=== PATIENT | female | born 1975 ===

== ENCOUNTER 2016-10-31 12:08 | Inpatient (IN) ==
--- NOTE | 2016-10-31 13:02 | Emergency Department Note ---
Raymundo Murphy Meredith, am scribing for, and in the presence of, Abdulaziz Melendez MD 12:51. Al Murphy Phillip K, MD, personally performed the services described in this documentation, ascribed by Carmela Fonseca in my presence, and it is both accurate and complete . Arrival - Arrival Chief Complaint: Extremity Problem Stated Complaint: infection in foot ED Nursing Triage Note: PT TRANSFERRED FROM [facility] FOR FURTHER EVALUATION OF INFECTION/CELLULITIS TO RIGHT FOOT. PT HAD PIECE OF GLASS REMOVED ON FRIDAY. PT GOT ROCEPHIN ON FRIDAY AND HAS BEEN TAKING PO AMOXIL. Mode of Arrival: Wheelchair Limitations: No Limitations Source: Patient, Old Records Reviewed, RN Notes Reviewed Time Seen by Provider: 10/31/16 12:55 - History of Present Illness HPI Narrative: Pt is a 41 y/o [place] female transferred to the ED from [facility] for further evaluation of infection/cellulitis to the right foot. She had a piece of glass removed 3 days ago. Pt got a Rocephin at that time and had been taking Amoxil. She denies any fever. She has a history of IDDM. Pt is a current everyday smoker. Onset (ago): day(s) Date of Last Menstrual Period: 10/19 Allergies/Adverse Reactions: Allergies Allergy/AdvReac Type Severity Reaction Status Date / Time sulfamethoxazole Allergy Unknown/Unable Verified 10/31/16 12:17 [From Bactrim] to obtain trimethoprim [From Bactrim] Allergy Unknown/Unable Verified 10/31/16 12:17 to obtain Home Medications: Home Medications Medication Instructions Recorded Confirmed Type Gabapentin Cap/Tab [Neurontin 300 mg PO BEDTIME 06/26/15 10/31/16 History Cap/Tab] Acetaminophen Tab [Tylenol Tab] 650 mg PO Q6H PRN #0 tablet 07/07/15 10/31/16 Rx Aspirin EC Tab 81 mg PO DAILY tablet 07/07/15 10/31/16 Rx Insulin Detemir [Levemir] 40 unit SUBCUT BEDTIME injection 07/07/15 10/31/16 Rx Acetamin/Codeine 300-30 Tab 1 tablet PO Q4H 10/31/16 10/31/16 History [Tylenol/Codeine #3] Gemfibrozil 600 mg PO QPM 10/31/16 10/31/16 History Mupirocin 2% Oint [Bactroban 2% 1 applic TOP TID 10/31/16 10/31/16 History Oint] Saxagliptin HCl [Onglyza] 2.5 mg PO QPM 10/31/16 10/31/16 History metFORMIN [Glucophage] 850 mg PO BID W/MEALS 10/31/16 10/31/16 History Review of System - Review of System 12 point system: reviewed and no additional remarkable complaints except as stated - Review of System Skin: Present: as per HPI, other (cellulitis/infection to the right foot) Medical,Surgical,& Family Hx - Medical History Endocrine: History of: Diabetes Mellitus (IDDM) - Surgical History Cardiac Surgeries: Patient Denies: Femoral-Popliteal Bypass Graft, Cardiac Catheterization, Cardiac Surgery, Carotid Endarterectomy, Internal Defibrillator, Vascular Access Devices Thoracic Surgeries: Patient denies;: Organ Transplant, Lobectomy Neurologic Surgeries: Patient denies: Neurologic Surgery HEENT Surgeries: Patient denies: Carotid Endarterectomy Abdominal Surgeries: Patient denies: Abdominal Surgery, Appendectomy, Cholecystectomy, Colonoscopy , Gastric Bypass Surgery, EGD, Hernia Repair, Splenectomy - Family History Family History: Reports;: Family Cancer (father's side), Family Diabetes Denies;: Family Heart Disease, Family Hypertension, Family Psychiatric Problems, Family Stroke - Social History Smoking Status: Current every day smoker Frequency of Alcohol Use: Occasionally Type of Drug Use: None Exam Vital Signs: Vital Signs Temperature 97.8 F 10/31/16 12:54 Pulse Rate 95 H 10/31/16 12:54 Respiratory Rate 16 10/31/16 12:54 Blood Pressure 104/66 10/31/16 12:54 O2 Sat by Pulse Oximetry 97 10/31/16 12:10 - General General appearance: alert, in no apparent distress - Head Head exam: Present: atraumatic, normocephalic - Eye Eye exam: Present: normal appearance, PERRL, EOMI - ENT ENT exam: Present: mucous membranes moist, normal external ear exam - Neck Neck exam: Present: full ROM, trachea midline. Absent: tenderness, meningismus , lymphadenopathy, thyromegaly - Chest Chest inspection: Present: symmetric chest wall rise. Absent: tenderness, rash - Respiratory Respiratory exam: Present: normal lung sounds bilaterally. Absent: respiratory distress - Cardiovascular Cardiovascular exam: Present: normal rhythm, tachycardia. Absent: murmur, rubs , gallop - Abdominal Exam Abdominal exam: Present: soft, normal bowel sounds. Absent: distention, tenderness - Extremities Exam Extremities exam: Present: full ROM, tenderness (at the site of puncture wound in the right foot), normal capillary refill. Absent: pedal edema, calf tenderness - Back Exam Back exam: Present: full ROM. Absent: tenderness - Neurological Exam Neurological exam: Present: alert, oriented X3, CN II-XII intact. Absent: motor sensory deficit - Psychiatric Psychiatric exam: Present: normal affect, normal mood - Skin Skin exam: Present: warm, dry, erythema (to the plantar aspect of of the right foot), other (swelling to the dorsum of the right foot) Results - Labs CBC & BMP: 10/31/16 13:40 Lab Results: I have reviewed the patients labs Labs: Laboratory Tests 10/31/16 13:40 WBC 7.7 RBC 3.91 Hgb 8.5 L Hct 28.7 L MCV 73.4 L MCH 22 L MCHC 29.6 L Plt Count 123 L Neut % (Auto) 78.6 H Lymph % (Auto) 13.4 L Lymph # (Auto) 1.0 L - Diagnostic Findings Procedure: X-ray: report reviewed by me (Foot: No acute fracture or dislocation demonstrated. No radiopaque foreign body visualized. There is soft tissue swelling about the foot at the MCP level. ) Disposition Clinical Impression: cellulitis right foot, Diabetes mellitus Case discussed with: patient Disposition: Still a Patient Condition: Guarded Additional Instructions: Admit to the hospitalist for IV antibiotics.
[2016-10-31] MEDS ORDERED: CLINDAMYCIN INJ 600 MG in PREMIX 1 EACH IV STA (13:32)
[2016-10-31 13:55] LABS: Basophils % 0.1 % (0.0-0.8); Eosinophils # 0.1 10*3/uL (0.0-0.87); Eosinophils % 0.8 % (0.00-10.9); Hematocrit 28.7 VOL% (35.7-47.0); Hemoglobin 8.5 GM/DL (12.0-16.0); Immature Granulocytes % 0.4 %; Immature Granulocytes Absolute 0.03 #; Lymphocytes % 13.4 % (21.3-54.2); Mean Corpuscular HGB Conc 29.6 GM/DL (32-36); Mean Corpuscular Hemoglobin 22 PG (27-34); Mean Corpuscular Volume 73.4 FL (87-102); Mean Platelet Volume 10.8 FL (9.6-12.0); Monocytes # 0.5 10*3/uL (0.11-0.8); Monocytes % 6.7 % (1.7-12.7); Neutrophils # 6.1 10*3/uL (1.4-7.4); Neutrophils % 78.6 % (38.7-73.9); Platelet Count 123 T/CUMM (130-400); Red Blood Count 3.91 MC/CUMM (3.8-5.5); Red Cell Distribution Width 16.3 % (9.3-17.3); White Blood Count 7.7 T/CUMM (4-12)
[2016-10-31] MEDS ORDERED: CLINDAMYCIN INJ 50 ML IV ONE (13:56)
[2016-10-31] MEDS ORDERED: GLUCAGON 1 MG VIAL IM PRN (14:00)
[2016-10-31] MEDS ORDERED: DEXTROSE 50% 25 GM/50 ML VIAL IV PRN (14:00)
[2016-10-31] MEDS ORDERED: DOCUSATE SODIUM 100 MG CAPSULE PO PRN (14:00)
[2016-10-31] MEDS ORDERED: ONDANSETRON 4 MG/2 ML VIAL IV PRN (14:00)
--- NOTE | 2016-10-31 14:03 | XRay Report ---
XR foot 3V RT Indication: Foreign body right foot removed Friday Comparison: Right foot x-ray dated October 25, 2016 Technique: Frontal, lateral, and oblique views of the right foot. Findings: No acute fracture or dislocation demonstrated. No radiopaque foreign body visualized. There is soft tissue swelling about the foot at the MCP level. IMPRESSION: As above. PROCEDURE INTERPRETED AT [facility] DEPARTMENT OF RADIOLOGY Final Report Signed by: Dr Jose A Westfall
[2016-10-31 14:27] LABS: Calcium 8.3 MG/DL (8.5-10.1); Osmolality,Calculated 287.7 MOS/KG (273-304); Potassium 4.3 MMOL/L (3.5-5.1)
--- NOTE | 2016-10-31 14:46 | Hospitalist History & Physical ---
Assessment and Plan (1) Cellulitis Status: Acute Assessment and plan: We will start empirical antibiotics after blood cultures are obtained. We will consult wound care for evaluation of right foot wound. Current Visit: No (2) Diabetes mellitus Status: Acute Assessment and plan: We will start accuchecks with sliding scale coverage and obtain HGA1C in AM. Current Visit: Yes Qualifiers: Diabetes mellitus complication status: with unspecified complications History of Present Illness Chief complaint: Infected Right Foot History of present illness: This a pleasant 41 year-old female with past medical history of diabetes and hypertension that presented from the [facility] for the evaluation of her right foot. Apparently, approximately 2 weeks ago her children were playing with a basketball in the house. They threw the ball into the air and it made contact with a glass light fixture causing it to shatter. She states that she stepped on some glass while attempting to clean-up the glass. She attempted to remove the glass and thought that she did. Her foot became increasingly worse; prompting her to present to the [facility] on last week. During that visit, she reports that the physician removed a small piece of glass at that time. She returned home. Her foot became very painful and warm to touch. Today, she presented to the [facility] for evaluation of her foot. She was seen at there today; where her right foot was evaluated. She was advised to present to [facility] for further evaluation. She will be admitted to the hospitalist service for infected right foot; probable cellulitis. Home Medications Medication Instructions Recorded Confirmed Type Gabapentin Cap/Tab [Neurontin 300 mg PO BEDTIME 06/26/15 10/31/16 History Cap/Tab] Acetaminophen Tab [Tylenol Tab] 650 mg PO Q6H PRN #0 tablet 07/07/15 10/31/16 Rx Aspirin EC Tab 81 mg PO DAILY tablet 07/07/15 10/31/16 Rx Insulin Detemir [Levemir] 40 unit SUBCUT BEDTIME injection 07/07/15 10/31/16 Rx Acetamin/Codeine 300-30 Tab 1 tablet PO Q4H 10/31/16 10/31/16 History [Tylenol/Codeine #3] Gemfibrozil 600 mg PO QPM 10/31/16 10/31/16 History Mupirocin 2% Oint [Bactroban 2% 1 applic TOP TID 10/31/16 10/31/16 History Oint] Saxagliptin HCl [Onglyza] 2.5 mg PO QPM 10/31/16 10/31/16 History metFORMIN [Glucophage] 850 mg PO BID W/MEALS 10/31/16 10/31/16 History Allergies Allergy/AdvReac Type Severity Reaction Status Date / Time sulfamethoxazole Allergy Unknown/Unable Verified 10/31/16 12:17 [From Bactrim] to obtain trimethoprim [From Bactrim] Allergy Unknown/Unable Verified 10/31/16 12:17 to obtain Medical,Surgical,& Family Hx - Medical History Endocrine: History of: Diabetes Mellitus (IDDM) - Surgical History Cardiac Surgeries: Patient Denies: Femoral-Popliteal Bypass Graft, Cardiac Catheterization, Cardiac Surgery, Carotid Endarterectomy, Internal Defibrillator, Vascular Access Devices Thoracic Surgeries: Patient denies;: Organ Transplant, Lobectomy Neurologic Surgeries: Patient denies: Neurologic Surgery HEENT Surgeries: Patient denies: Carotid Endarterectomy Abdominal Surgeries: Patient denies: Abdominal Surgery, Appendectomy, Cholecystectomy, Colonoscopy , Gastric Bypass Surgery, EGD, Hernia Repair, Splenectomy - Family History Family History: Reports;: Family Cancer (father's side), Family Diabetes Denies;: Family Heart Disease, Family Hypertension, Family Psychiatric Problems, Family Stroke - Social History Smoking Status: Current every day smoker Frequency of Alcohol Use: Occasionally Type of Drug Use: None Exam - Constitutional Vitals: Period Temp Pulse Resp BP Sys/Muniz Pulse Ox Last 24 Hr 97.8 F-97.8 F 95-95 16-16 104-104/66-66 97 Results - Labs CBC & BMP: 10/31/16 13:40 10/31/16 13:40 Quality Measures - VTE Contraindication to Pharmacological VTE Prophylaxis: Clinical assessment deems Pt at low risk, no prophalaxis needed
[2016-10-31] MEDS: SODIUM CHLORIDE 0.9% 1,000 ML IV SCH (17:50)
[2016-10-31] MEDS: INSULIN REGULAR 100 UNIT/ML SUBCUT SCH ×2 (17:52→21:01)
[2016-11-01] MEDS: SODIUM CHLORIDE 0.9% 1,000 ML IV SCH ×3 (06:27→21:08)
[2016-11-01 06:55] LABS: Basophils % 0.3 % (0.0-0.8); Eosinophils # 0.1 10*3/uL (0.0-0.87); Eosinophils % 1.9 % (0.00-10.9); Hematocrit 25.7 VOL% (35.7-47.0); Hemoglobin 7.4 GM/DL (12.0-16.0); Immature Granulocytes % 0.2 %; Immature Granulocytes Absolute 0.01 #; Lymphocytes # 1.5 10*3/uL (1.4-4.0); Lymphocytes % 23.6 % (21.3-54.2); Mean Corpuscular HGB Conc 28.8 GM/DL (32-36); Mean Corpuscular Hemoglobin 21 PG (27-34); Mean Corpuscular Volume 74.3 FL (87-102); Monocytes # 0.5 10*3/uL (0.11-0.8); Monocytes % 7.9 % (1.7-12.7); Neutrophils # 4.3 10*3/uL (1.4-7.4); Neutrophils % 66.1 % (38.7-73.9); Platelet Count 106 T/CUMM (130-400); Red Blood Count 3.46 MC/CUMM (3.8-5.5); Red Cell Distribution Width 16.4 % (9.3-17.3); White Blood Count 6.4 T/CUMM (4-12)
[2016-11-01 07:23] LABS: Hypochromasia 1+
[2016-11-01 07:44] LABS: Albumin 2.3 G/DL (3.4-5.0); Bilirubin,Total 0.7 MG/DL (0.2-1.0); Calcium 7.3 MG/DL (8.5-10.1); Magnesium 1.6 MG/DL (1.8-2.4); Osmolality,Calculated 289.8 MOS/KG (273-304); Phosphorous 3.1 MG/DL (2.5-4.9); Potassium 4.1 MMOL/L (3.5-5.1); Risk Ratio 2.65; Thyroid Stimulating Hormone 1.26 uIU/ml (0.358-3.74); Total Protein 5.6 G/DL (6.4-8.3)
[2016-11-01] MEDS: PANTOPRAZOLE 40 MG TABLET PO SCH (08:01)
[2016-11-01] MEDS ORDERED: MAGNESIUM SULF RIDER 4 GM in PREMIX 1 EACH IV ONE (08:30)
[2016-11-01] MEDS: INSULIN REGULAR 100 UNIT/ML SUBCUT SCH ×4 (08:50→21:03)
[2016-11-01] MEDS ORDERED: SODIUM CHLORIDE 0.9% 250 ML IV PRN (09:12)
--- NOTE | 2016-11-01 13:36 | Magnetic Resonance Report ---
Referring Physician: Carol Quarles MD Exam: MR foot without contrast Date: November 01, 2016 Reason: Redness and swelling, stepped on glass one week ago, foreign body removed Friday Comparison: Right foot x-rays October 25, 2016 and October 31, 2016 Technique: MRI of the right forefoot was performed without the use of contrast. Obtained sequences include axial proton-density, axial proton density fat sat, sagittal T1, sagittal proton density fat sat, coronal T1, coronal proton density fat sat and coronal STIR sequences. A 1.2 Billie open magnet was used. Findings: There is soft tissue edema at the plantar aspect of the right forefoot, mainly underlying the first and second metatarsal heads. There is a history of recent foreign body removal in this region, and this could represent edema from trauma or cellulitis. No definite soft tissue foreign body is seen. Between the first and second metatarsal heads, there is a 0 0.7 x 0.7 x 0.4 cm well-circumscribed focus of T2 hyperintensity/T1 hypointensity. This has a cystic appearance and could represent a ganglion cyst. An abscess is thought less likely since it is located at the margin of the above-mentioned edema but cannot be excluded. No acute fracture or osseous destructive process is identified. The visualized tendons and ligaments appear intact. There is no evidence of sesamoiditis. Impression: 1. There is soft tissue edema at the plantar aspect of the right forefoot, mainly underlying the first and second metatarsal heads. There is a history of foreign body removal in this region, and this could represent edema from recent trauma or cellulitis. 2. Between the first and second metatarsal heads, there is a 0.7 x 0.7 x 0.4 cm cystic area. This could represent a ganglion cyst. An abscess is thought less likely since it is at the margin of the above-mentioned edema, but an abscess cannot be excluded. Follow-up imaging could be obtained. PROCEDURE INTERPRETED AT [facility] DEPARTMENT OF RADIOLOGY Final Report Signed by: Dr. Segundo Dennis
--- NOTE | 2016-11-01 14:42 | Hospitalist Progress Note ---
Assessment and Plan - Time spent with patient Time spent with patient: Greater than 30 minutes (1) Cellulitis Status: Acute Assessment and plan: MRI reveals no foreign objects and a likely cyst adjacent to the area of edema where the puncture wound is. Not likely to be an abscess.. Current Visit: No (2) Diabetes mellitus Status: Acute Assessment and plan: Continue current management. Will also add Levemir. Current Visit: Yes Qualifiers: Diabetes mellitus complication status: with unspecified complications (3) Hypertension Status: Acute Assessment and plan: Continue current management. Current Visit: No Qualifiers: Hypertension type: essential hypertension Qualified Code(s): I10 - Essential (primary) hypertension Hospitalist: Subjective Interval history: Patient reports feeling much better this morning. There is still tenderness at the area of the puncture wound. Exam - Constitutional Vitals: Period Temp Pulse Resp BP Sys/Muniz Pulse Ox Last 24 Hr 98 F-98.9 F 85-94 16-20 104-113/58-73 92-100 General appearance: no acute distress - Head Head exam: Present: normocephalic, atraumatic - Eye Eye exam: Present: EOMI Pupils: Present: ZAY - ENT ENT exam: Present: normal exam - Neck Neck exam: Present: normal inspection - Respiratory Respiratory exam: Present: clear to auscultation bilaterally. Absent: rhonchi, wheezes - Cardiovascular Cardiovascular exam: Present: regular rate and rhythm. Absent: gallop, rubs, systolic murmur - GI/Abdominal GI/Abdominal exam: Present: normal bowel sounds, soft. Absent: distended, firm , guarding, tenderness, rebound - Extremities Exam Extremities exam: Present: normal inspection, other (Erythema around the area the puncture wound has significantly reduced plantar right foot.). Absent: calf tenderness, edema Results - Labs CBC & BMP: 11/01/16 05:31 11/01/16 05:31 Lab Results: I have reviewed the past 24 hour labs Quality Measures - VTE Contraindication to Pharmacological VTE Prophylaxis: Clinical assessment deems Pt at low risk, no prophalaxis needed
[2016-11-01] MEDS: metFORMIN 850 MG TABLET PO SCH (17:01)
[2016-11-01] MEDS: sitaGLIPtin 100 MG TABLET PO SCH (19:39)
[2016-11-01] MEDS: GABAPENTIN 300 MG CAPSULE PO SCH (21:03)
[2016-11-01] MEDS: INSULIN GLARGINE 100 UNIT/ML SUBCUT SCH (21:04)
[2016-11-02 06:07] LABS: Basophils % 0.1 % (0.0-0.8); Eosinophils # 0.1 10*3/uL (0.0-0.87); Eosinophils % 1.1 % (0.00-10.9); Hemoglobin 8.8 GM/DL (12.0-16.0); Immature Granulocytes % 0.5 %; Immature Granulocytes Absolute 0.04 #; Lymphocytes # 1.2 10*3/uL (1.4-4.0); Lymphocytes % 14.7 % (21.3-54.2); Mean Corpuscular HGB Conc 30.3 GM/DL (32-36); Mean Corpuscular Hemoglobin 23 PG (27-34); Mean Corpuscular Volume 75.7 FL (87-102); Monocytes # 0.6 10*3/uL (0.11-0.8); Monocytes % 6.9 % (1.7-12.7); Neutrophils # 6.1 10*3/uL (1.4-7.4); Neutrophils % 76.7 % (38.7-73.9); Platelet Count 108 T/CUMM (130-400); Red Blood Count 3.83 MC/CUMM (3.8-5.5); Red Cell Distribution Width 16.7 % (9.3-17.3)
[2016-11-02 06:36] LABS: Calcium 7.3 MG/DL (8.5-10.1); Potassium 4.2 MMOL/L (3.5-5.1)
[2016-11-02] MEDS: INSULIN REGULAR 100 UNIT/ML SUBCUT SCH ×4 (07:39→20:33)
[2016-11-02] MEDS: SODIUM CHLORIDE 0.9% 1,000 ML IV SCH ×3 (07:50→18:55)
[2016-11-02] MEDS: PANTOPRAZOLE 40 MG TABLET PO SCH (09:33)
[2016-11-02] MEDS: ASPIRIN EC 81 MG TABLET PO SCH (09:33)
[2016-11-02] MEDS: metFORMIN 850 MG TABLET PO SCH ×2 (09:33→17:10)
--- NOTE | 2016-11-02 11:49 | Hospitalist Progress Note ---
Assessment and Plan - Time spent with patient Time spent with patient: Greater than 30 minutes (1) Cellulitis Status: Acute Assessment and plan: MRI reveals no foreign objects and a likely cyst adjacent to the area of edema where the puncture wound is. Not likely to be an abscess however will ask orthopedics to evaluate. Current Visit: No (2) Diabetes mellitus Status: Acute Assessment and plan: Continue current management. Current Visit: Yes Qualifiers: Diabetes mellitus complication status: with unspecified complications (3) Hypertension Status: Acute Assessment and plan: Continue current management. Current Visit: No Qualifiers: Hypertension type: essential hypertension Qualified Code(s): I10 - Essential (primary) hypertension Hospitalist: Subjective Interval history: No complaints no overnight events. Exam - Constitutional Vitals: Period Temp Pulse Resp BP Sys/Muniz Pulse Ox Last 24 Hr 97.9 F-99.6 F 80-100 16-20 100-133/58-82 92-99 General appearance: no acute distress - Head Head exam: Present: normocephalic, atraumatic - Eye Eye exam: Present: EOMI Pupils: Present: ZAY - ENT ENT exam: Present: normal exam - Neck Neck exam: Present: normal inspection - Respiratory Respiratory exam: Present: clear to auscultation bilaterally. Absent: rhonchi, wheezes - Cardiovascular Cardiovascular exam: Present: regular rate and rhythm. Absent: gallop, rubs, systolic murmur - GI/Abdominal GI/Abdominal exam: Present: normal bowel sounds, soft. Absent: distended, firm , guarding, tenderness, rebound - Extremities Exam Extremities exam: Present: normal inspection, other (Right foot reveals ecchymoses on the plantar surface.). Absent: calf tenderness, edema Results - Labs CBC & BMP: 11/02/16 05:39 11/02/16 05:39 Lab Results: I have reviewed the past 24 hour labs Quality Measures - VTE Contraindication to Pharmacological VTE Prophylaxis: Clinical assessment deems Pt at low risk, no prophalaxis needed
--- NOTE | 2016-11-02 16:57 | Orthopedic Consult Note ---
History of Present Illness Chief complaint: Right foot infection History of present illness: Ms. Calle is a 41 year old female who was admitted to the hospital with a right foot infection. Last week, she stepped on some glass at home. It was removed an outside facility. She developed increased redness and swelling in the foot and was transferred here for further care. She was then started on IV antibiotics. An MRI was obtained that showed questionable cyst versus abscess. I was consulted for evaluation. Patient states that the swelling has improved over the last day or 2 while on antibiotics. She has an insulin-dependent diabetic She denies any constitutional symptoms Home Medications Medication Instructions Recorded Confirmed Type Gabapentin Cap/Tab [Neurontin 300 mg PO BEDTIME 06/26/15 10/31/16 History Cap/Tab] Acetaminophen Tab [Tylenol Tab] 650 mg PO Q6H PRN #0 tablet 07/07/15 10/31/16 Rx Aspirin EC Tab 81 mg PO DAILY tablet 07/07/15 10/31/16 Rx Insulin Detemir [Levemir] 40 unit SUBCUT BEDTIME injection 07/07/15 10/31/16 Rx Acetamin/Codeine 300-30 Tab 1 tablet PO Q4H 10/31/16 10/31/16 History [Tylenol/Codeine #3] Mupirocin 2% Oint [Bactroban 2% 1 applic TOP TID 10/31/16 10/31/16 History Oint] Saxagliptin HCl [Onglyza] 2.5 mg PO QPM 10/31/16 10/31/16 History metFORMIN [Glucophage] 850 mg PO BID W/MEALS 10/31/16 10/31/16 History Allergies Allergy/AdvReac Type Severity Reaction Status Date / Time sulfamethoxazole Allergy Unknown/Unable Verified 10/31/16 12:17 [From Bactrim] to obtain trimethoprim [From Bactrim] Allergy Unknown/Unable Verified 10/31/16 12:17 to obtain 12 point system: reviewed and no additional remarkable complaints except as stated Medical,Surgical,& Family Hx - Medical History Endocrine: History of: Diabetes Mellitus (IDDM) Musculoskeletal: No history of: Amputation - Surgical History Cardiac Surgeries: Patient Denies: Femoral-Popliteal Bypass Graft, Cardiac Catheterization, Cardiac Surgery, Carotid Endarterectomy, Internal Defibrillator, Vascular Access Devices Thoracic Surgeries: Patient denies;: Organ Transplant, Lobectomy Neurologic Surgeries: Patient denies: Neurologic Surgery HEENT Surgeries: Patient denies: Carotid Endarterectomy Abdominal Surgeries: Patient denies: Abdominal Surgery, Appendectomy, Cholecystectomy, Colonoscopy , Gastric Bypass Surgery, EGD, Hernia Repair, Splenectomy Reproductive Surgeries: Surgical HX of;: Section, Gynecologic Surgery, Tubal Ligation - Family History Family History: Reports;: Family Cancer (father's side), Family Diabetes Denies;: Family Heart Disease, Family Hypertension, Family Psychiatric Problems, Family Stroke - Social History Smoking Status: Current every day smoker Frequency of Alcohol Use: Occasionally Type of Drug Use: None Exam - Constitutional Vitals: Period Temp Pulse Resp BP Sys/Muniz Pulse Ox Last 24 Hr 97.9 F-99.4 F 80-100 16-20 100-133/58-82 92-99 Exam: Right foot: She has some erythema and edema about the foot particular plantar also ecchymosis over the plantar aspect of the foot. She has got an area of the distal forefoot underneath the second metatarsal head with a glass was likely removed. She is nontender along the dorsal aspect of the foot. There is no streaking, no fluctuance noted. Results - Labs CBC & BMP: 11/02/16 05:39 11/02/16 05:39 - Diagnostic Findings Procedure: MRI: image reviewed by me, report reviewed by me (MRI of the right foot shows some swelling and edema consistent with cellulitis plantar aspect of the right foot. There is a fluid-filled lesion along the lateral aspect of the great toe MTP joint. This does not communicate with the plantar aspect of the foot. Likely represents a ganglion cyst. Unlikely to be an abscess.), X-ray: image reviewed by me (Radiographs show no fracture, soft tissue swelling is noted) Assessment and Plan (1) Cellulitis Status: Acute Assessment and plan: Right foot cellulitis status post foreign body removal Per the patient her symptoms appear to be improving. By exam and MRI feel that the lesion noted is more likely a ganglion cyst that communicates with the great toe MTP joint rather than an abscess, however the MRI was done without contrast. At this point, I do not think any surgical intervention is necessary. Recommend continue IV antibiotics. If her symptoms worsen, repeat imaging with contrast could be of benefit. Patient follow-up with the health center, and orthopedic follow-up as necessary. Current Visit: No Qualifiers: Site of cellulitis: extremity Site of cellulitis of extremity: lower extremity Laterality: right Qualified Code(s): L03.115 - Cellulitis of right lower limb
[2016-11-02] MEDS: sitaGLIPtin 100 MG TABLET PO SCH (18:54)
[2016-11-02] MEDS: GABAPENTIN 300 MG CAPSULE PO SCH (20:35)
[2016-11-02] MEDS: INSULIN GLARGINE 100 UNIT/ML SUBCUT SCH (20:39)
[2016-11-03] MEDS: SODIUM CHLORIDE 0.9% 1,000 ML IV SCH ×3 (03:13→15:08)
[2016-11-03 04:56] LABS: Basophils % 0.3 % (0.0-0.8); Eosinophils # 0.2 10*3/uL (0.0-0.87); Hematocrit 27.8 VOL% (35.7-47.0); Hemoglobin 8.6 GM/DL (12.0-16.0); Immature Granulocytes % 0.4 %; Immature Granulocytes Absolute 0.03 #; Lymphocytes # 1.6 10*3/uL (1.4-4.0); Lymphocytes % 20.3 % (21.3-54.2); Mean Corpuscular HGB Conc 30.9 GM/DL (32-36); Mean Corpuscular Hemoglobin 23 PG (27-34); Mean Corpuscular Volume 74.7 FL (87-102); Mean Platelet Volume 11.7 FL (9.6-12.0); Monocytes # 0.6 10*3/uL (0.11-0.8); Monocytes % 7.3 % (1.7-12.7); Neutrophils # 5.4 10*3/uL (1.4-7.4); Neutrophils % 69.7 % (38.7-73.9); Platelet Count 125 T/CUMM (130-400); Red Blood Count 3.72 MC/CUMM (3.8-5.5); Red Cell Distribution Width 16.9 % (9.3-17.3); White Blood Count 7.7 T/CUMM (4-12)
[2016-11-03 05:25] LABS: Calcium 7.8 MG/DL (8.5-10.1); Osmolality,Calculated 282.8 MOS/KG (273-304); Potassium 3.8 MMOL/L (3.5-5.1)
--- NOTE | 2016-11-03 07:48 | Orthopedic Progress Note ---
Assessment and Plan (1) Cellulitis Status: Acute Assessment and plan: Right foot cellulitis status post foreign body removal Exam improving No surgery necessary at this point Okay to discharge home Follow up with Health Center, no orthopedic follow-up necessary Current Visit: No Qualifiers: Site of cellulitis: extremity Site of cellulitis of extremity: lower extremity Laterality: right Qualified Code(s): L03.115 - Cellulitis of right lower limb Orthopedics - Subjective Interval history: No new complaints. Vital signs stable Decreasing erythema and edema in the foot today Exam - Constitutional Vitals: Period Temp Pulse Resp BP Sys/Muniz Pulse Ox Last 24 Hr 97.9 F-98.7 F 76-118 16-20 115-127/67-82 94-98 Results - Labs CBC & BMP: 11/03/16 03:15 11/03/16 03:15 Quality Measures - VTE Contraindication to Pharmacological VTE Prophylaxis: Clinical assessment deems Pt at low risk, no prophalaxis needed
[2016-11-03] MEDS: INSULIN REGULAR 100 UNIT/ML SUBCUT SCH ×2 (08:00→12:32)
[2016-11-03] MEDS: ASPIRIN EC 81 MG TABLET PO SCH (09:33)
[2016-11-03] MEDS: metFORMIN 850 MG TABLET PO SCH (09:33)
[2016-11-03] MEDS: PANTOPRAZOLE 40 MG TABLET PO SCH (09:33)
--- NOTE | 2016-11-03 12:24 | Discharge Summary ---
Hospital Course - Hospital Course Hospital Course: Ms. Calle was admitted for evaluation of right plantar cellulitis secondary to trauma. Prior to presentation the patient had stepped on a piece of glass which was removed and subsequently developed into cellulitis. She was admitted and placed on IV antibiotics. MRI was obtained of her leg which revealed no evidence of abscess. There was a small cyst however this was out of the region of edema and was evaluated by orthopedics and felt to be a ganglion cyst. Patient had no fever or elevated white blood cell count while hospitalized. She will be discharged with oral medications for completion of her treatment. - Time spent with patient Time with patient DS: Greater than 30 minutes Diagnosis - Discharge Diagnosis (1) Cellulitis Status: Acute (2) Diabetes mellitus Status: Acute (3) Hypertension Status: Acute Discharge Plan - Discharge Data Disposition: Disch To Home/Self Care Condition at Discharge: Stable Discharge Diet: advance to your usual diet Activity: resume usual activities as tolerated - Discharge Medications New Clindamycin HCl [Clindamycin Cap] 600 mg PO Q8HR #60 capsule Levofloxacin Tab [Levaquin Tab] 500 mg PO DAILY #10 tablet Continue Gabapentin Cap/Tab [Neurontin Cap/Tab] 300 mg PO BEDTIME Aspirin EC Tab 81 mg PO DAILY tablet Insulin Detemir [Levemir] 40 unit SUBCUT BEDTIME injection Acetaminophen Tab [Tylenol Tab] 650 mg PO Q6H PRN #0 tablet PRN Reason: Pain Mild (1-3) And/Or Fever metFORMIN [Glucophage] 850 mg PO BID W/MEALS Mupirocin 2% Oint [Bactroban 2% Oint] 1 applic TOP TID Acetamin/Codeine 300-30 Tab [Tylenol/Codeine #3] 1 tablet PO Q4H Saxagliptin HCl [Onglyza] 2.5 mg PO QPM - Follow Up or Referral - Forms/Instructions Forms: Acute Care Work/School Release Exam - Constitutional Vitals: Period Temp Pulse Resp BP Sys/Muniz Pulse Ox Last 24 Hr 98 F-98.4 F 76-118 17-20 115-121/67-82 94-98 General appearance: normal weight, no acute distress - Head Head exam: Present: normal inspection, normocephalic, atraumatic - Eye Eye exam: Present: EOMI Pupils: Present: ZAY - ENT ENT exam: Present: normal exam - Neck Neck exam: Present: normal inspection - Respiratory Respiratory exam: Present: clear to auscultation bilaterally - Cardiovascular Cardiovascular exam: Present: regular rate and rhythm. Absent: bradycardia, irregular rhythm, systolic murmur - GI/Abdominal GI/Abdominal exam: Present: normal bowel sounds. Absent: hypoactive bowel sounds, tenderness - Extremities Exam Extremities exam: Present: normal inspection Discharge Results Labs on day of discharge: Labs from last 24 hours 11/03/16 11/03/16 11/03/16 07:52 03:15 03:15 WBC 7.7 RBC 3.72 L Hgb 8.6 L Hct 27.8 L MCV 74.7 L MCH 23 L MCHC 30.9 L RDW 16.9 Plt Count 125 L MPV 11.7 Neut % (Auto) 69.7 Lymph % (Auto) 20.3 L [place] % (Auto) 7.3 Eos % (Auto) 2.0 Baso % (Auto) 0.3 Neut # (Auto) 5.4 Lymph # (Auto) 1.6 [place] # (Auto) 0.6 Eos # (Auto) 0.2 Baso # (Auto) 0.0 Immature Gran % 0.4 Nucleated RBC % 0.0 Immature Gran # 0.03 Nucleated RBCs # 0.00 Sodium 144 Potassium 3.8 Chloride 112 H Carbon Dioxide 23 Anion Gap 12.8 BUN 6 L Creatinine 0.50 L GFR Calculation 134 BUN/Creatinine Ratio 12.00 Glucose 78 POC Glucose 91 Calculated Osmolality 282.8 Calcium 7.8 L 11/02/16 11/02/16 19:41 15:13 WBC RBC Hgb Hct MCV MCH MCHC RDW Plt Count MPV Neut % (Auto) Lymph % (Auto) [place] % (Auto) Eos % (Auto) Baso % (Auto) Neut # (Auto) Lymph # (Auto) [place] # (Auto) Eos # (Auto) Baso # (Auto) Immature Gran % Nucleated RBC % Immature Gran # Nucleated RBCs # Sodium Potassium Chloride Carbon Dioxide Anion Gap BUN Creatinine GFR Calculation BUN/Creatinine Ratio Glucose POC Glucose 150 H 124 H Calculated Osmolality Calcium DS: Provider Date of admission: 11/01/16 14:28 Primary care physician: Sharyn Golden MD Attending physician on admission: Carol Quarles MD Consults: 11/02/16 08:27 Consult to Physician [CONS] Routine Comment: please evaluate MRI findings Consulting Provider: Evin Taylor Consulting Provider Notified: Yes Consult to Specialist Group: Orthopedic When should Consulting Provider be notified: Now Person Notified: Dr. Taylor Date Notified: 11/02/16 Time Notified: 11:31 Discharging clinician: Carol Quarles MD Expected date of discharge: 11/03/16
[2016-11-03 13:12] VITALS: BP 132/81
--- NOTE | 2016-11-05 13:57 | Physician Query Form ---
CLICK EDIT DOCUMENT TO SELECT QUERY ANSWER --> OK --> SIGN Sunni Garcia RN, CCDS Certified Clinical Corporate Technical Recruiter W) [phone] (f) [phone] [email or web address]: Make your selection(s) from the choices in EACH section by typing an "x" and enter comments in the comment section. Please use your independent medical judgment in providing your response. This request does not imply that any particular answer is desired or expected. CLINICAL INDICATORS: (Providers should not edit this section) Patient "was admitted for evaluation of right plantar cellulitis secondary to trauma. Prior to presentation the patient had stepped on a piece of glass which was removed and subsequently developed into cellulitis". DM with unspecified complication documented. Levemir added to DM regimen. Based on the above, could you clarify the appropriate diagnosis, if significant , that supports the above abnormalities and additional evaluation, monitoring, and/or treatment rendered: ( ) Cellulitis as complication of diabetes (x ) Cellulitis is unrelated to diabetes ( ) Other complication of diabetes, please specify: ( ) Clinically unable to determine COMMENTS: Use of terms such as suspected, likely, or probable (associated with a specific diagnosis that is being evaluated, monitored, or treated as if it exists) are acceptable and can be restated in the discharge summary if not ruled out. MTDD
== END 2016-11-03 15:50 | disposition home or self-care (01) | DRG 603 ==
LOC: N.ED 12:08 → INTOOBSV 13:58 → OBSVTOIN 13:58 → N.EDINP 13:58 → N.2E 15:30
PROVIDERS: ADMIT Internal Medicine; ATTEND Internal Medicine

== ENCOUNTER 2016-11-12 19:38 | Inpatient (IN) ==
[2016-11-12] MEDS ORDERED: ACETAMINOPHEN 325 MG TABLET PO PRN (20:01)
[2016-11-12] MEDS ORDERED: BISACODYL 5 MG TABLET PO PRN (20:01)
[2016-11-12] MEDS ORDERED: ONDANSETRON 4 MG/2 ML VIAL IV PRN (20:01)
[2016-11-12] MEDS ORDERED: ALUMINUM/MAGNES/SIMETH MAX STR 30 ML UDCUP PO PRN (20:01)
[2016-11-12] MEDS ORDERED: GLUCAGON 1 MG VIAL IM PRN (20:01)
[2016-11-12] MEDS ORDERED: DEXTROSE 50% 25 GM/50 ML VIAL IV PRN (20:01)
[2016-11-12] MEDS ORDERED: HYDROmorphone 2 MG/1 ML VIAL IV PRN (20:01)
--- NOTE | 2016-11-12 20:20 | General Surg History&Physical ---
Assessment and Plan - Time spent with patient Time spent with patient: Less than 30 minutes (1) Abscess of skin or subcutaneous tissue Status: Resolved Assessment and plan: Impression: 1. Abscess of the right foot questionable foreign body 2. Diabetes insulin-dependent. Plan: IV antibiotics and surgery for drainage. We will obtain a CT scan to see if anything can be seen especially fluid pockets that would may aid in the drainage of this fluid. Current Visit: No Qualifiers: Site of cutaneous abscess: extremity Site of cutaneous abscess of extremity : foot Laterality: right Qualified Code(s): L02.611 - Cutaneous abscess of right foot History of Present Illness Chief complaint: Abscess right foot History of present illness: Ms. Calle is a 41 year old female female who several weeks ago came to the emergency room with swelling of the right foot following the injury with a piece of glass. She is a diabetic on insulin at this time and apparently the foreign material was removed and she was sent home. Recently she has developed increased swelling and pain in the medial aspect of her foot near the where the wound was at. She was transferred down here after being on several days of some antibiotics without any improvement with progression of the cellulitis of the foot. We will admit at this time for IV antibiotics and probably to surgery for drainage. Home Medications Medication Instructions Recorded Confirmed Type Gabapentin Cap/Tab [Neurontin 300 mg PO BEDTIME 06/26/15 10/31/16 History Cap/Tab] Acetaminophen Tab [Tylenol Tab] 650 mg PO Q6H PRN #0 tablet 07/07/15 10/31/16 Rx Aspirin EC Tab 81 mg PO DAILY tablet 07/07/15 10/31/16 Rx Insulin Detemir [Levemir] 40 unit SUBCUT BEDTIME injection 07/07/15 10/31/16 Rx Acetamin/Codeine 300-30 Tab 1 tablet PO Q4H 10/31/16 10/31/16 History [Tylenol/Codeine #3] Mupirocin 2% Oint [Bactroban 2% 1 applic TOP TID 10/31/16 10/31/16 History Oint] Saxagliptin HCl [Onglyza] 2.5 mg PO QPM 10/31/16 10/31/16 History metFORMIN [Glucophage] 850 mg PO BID W/MEALS 10/31/16 10/31/16 History Clindamycin HCl [Clindamycin Cap] 600 mg PO Q8HR #60 capsule 11/03/16 Rx Levofloxacin Tab [Levaquin Tab] 500 mg PO DAILY #10 tablet 11/03/16 Rx Allergies Allergy/AdvReac Type Severity Reaction Status Date / Time sulfamethoxazole Allergy Unknown/Unable Verified 11/12/16 19:51 [From Bactrim] to obtain trimethoprim [From Bactrim] Allergy Unknown/Unable Verified 11/12/16 19:51 to obtain Medical,Surgical,& Family Hx - Medical History Endocrine: History of: Diabetes Mellitus (IDDM) Musculoskeletal: No history of: Amputation - Surgical History Cardiac Surgeries: Patient Denies: Femoral-Popliteal Bypass Graft, Cardiac Catheterization, Cardiac Surgery, Carotid Endarterectomy, Internal Defibrillator, Vascular Access Devices Thoracic Surgeries: Patient denies;: Organ Transplant, Lobectomy Neurologic Surgeries: Patient denies: Neurologic Surgery HEENT Surgeries: Patient denies: Carotid Endarterectomy Abdominal Surgeries: Patient denies: Abdominal Surgery, Appendectomy, Cholecystectomy, Colonoscopy , Gastric Bypass Surgery, EGD, Hernia Repair, Splenectomy Reproductive Surgeries: Surgical HX of;: Section, Gynecologic Surgery, Tubal Ligation - Family History Family History: Reports;: Family Cancer (father's side), Family Diabetes Denies;: Family Heart Disease, Family Hypertension, Family Psychiatric Problems, Family Stroke - Social History Smoking Status: Current every day smoker Frequency of Alcohol Use: Occasionally Type of Drug Use: None Functional capacity: independent ambulation Exam - Constitutional Vitals: Period Temp Pulse Resp BP Sys/Muniz Pulse Ox Last 24 Hr 98.1 F 113 18 93/64 96 General appearance: mild distress - Head Head exam: Present: normal inspection - ENT ENT exam: Present: normal exam - Neck Neck exam: Present: normal inspection - Respiratory Respiratory exam: Present: clear to auscultation bilaterally - Cardiovascular Cardiovascular exam: Present: RRR - GI/Abdominal GI/Abdominal exam: Present: normal bowel sounds, soft. Absent: tenderness - Extremities Exam Extremities exam: Present: other (Marked swelling of the right foot with erythematous changes around the medial aspect of first metatarsal head area. Swelling extends onto the dorsum of the foot extends towards the ankle. There is evidence of an old wound at the base of the first metatarsal head that it is no necrotic tissue or drainage seen from it at this time.) - Back Exam Back exam: Present: normal inspection - Neurological Exam Neurological exam: Present: alert, oriented X3, CN II-XII intact - Skin Skin exam: Present: normal color, warm, dry 12 point system: reviewed and no additional remarkable complaints except as stated Results - Labs Lab Results: I have reviewed the past 24 hour labs
[2016-11-12] MEDS ORDERED: PIPERACILLIN/TAZOBACTAM 3,375 MG in SODIUM CHLORIDE 0.9% 100 ML IV STA (20:27)
--- NOTE | 2016-11-12 20:27 | Emergency Department Note ---
Ward Murphy Brittany, am scribing for, and in the presence of, Lane Youssef MD 20:23. Mikael Murphy Charles R, MD, personally performed the services described in this documentation, ascribed by Ele Hopper in my presence, and it is both accurate and complete . Arrival - Arrival Chief Complaint: Extremity Problem Stated Complaint: Rt foot infection ED Nursing Triage Note: c/o infection to right foot. here to see Dr Aldana. Mode of Arrival: Ambulatory Limitations: No Limitations Source: Patient, RN Notes Reviewed Time Seen by Provider: 11/12/16 20:07 - History of Present Illness HPI Narrative: Patient is a 41 y/o [place] female presenting to the ED by EMS from [facility] for further evaluation of diabetic foot ulcer to the right plantar region. Patient states that she is here to see Dr. Aldana for wound care. Patient reports that on 10/24/16 she stepped on a piece of glass and before the glass could get removed, her foot got infected. She has been on Clindamycin since 10/24 with no changes. She denies any history of kidney problems. Patient does have a history of IDDM since the age of 28. Patient has no other complaint/ pain in the ED at this time. Onset (ago): week(s) (since 10/24) Consistency: constant Date of Last Menstrual Period: around the 10th Allergies/Adverse Reactions: Allergies Allergy/AdvReac Type Severity Reaction Status Date / Time sulfamethoxazole Allergy Unknown/Unable Verified 11/12/16 19:51 [From Bactrim] to obtain trimethoprim [From Bactrim] Allergy Unknown/Unable Verified 11/12/16 19:51 to obtain Home Medications: Home Medications Medication Instructions Recorded Confirmed Type Gabapentin Cap/Tab [Neurontin 300 mg PO BEDTIME 06/26/15 10/31/16 History Cap/Tab] Acetaminophen Tab [Tylenol Tab] 650 mg PO Q6H PRN #0 tablet 07/07/15 10/31/16 Rx Aspirin EC Tab 81 mg PO DAILY tablet 07/07/15 10/31/16 Rx Insulin Detemir [Levemir] 40 unit SUBCUT BEDTIME injection 07/07/15 10/31/16 Rx Acetamin/Codeine 300-30 Tab 1 tablet PO Q4H 10/31/16 10/31/16 History [Tylenol/Codeine #3] Mupirocin 2% Oint [Bactroban 2% 1 applic TOP TID 10/31/16 10/31/16 History Oint] Saxagliptin HCl [Onglyza] 2.5 mg PO QPM 10/31/16 10/31/16 History metFORMIN [Glucophage] 850 mg PO BID W/MEALS 10/31/16 10/31/16 History Clindamycin HCl [Clindamycin Cap] 600 mg PO Q8HR #60 capsule 11/03/16 Rx Levofloxacin Tab [Levaquin Tab] 500 mg PO DAILY #10 tablet 11/03/16 Rx Review of System - Review of System 12 point system: reviewed and no additional remarkable complaints except as stated - Review of System Constitutional: Present: as per HPI Musculoskeletal: Present: as per HPI Skin: Present: as per HPI Medical,Surgical,& Family Hx - Medical History Endocrine: History of: Diabetes Mellitus (IDDM) Musculoskeletal: No history of: Amputation - Surgical History Cardiac Surgeries: Patient Denies: Femoral-Popliteal Bypass Graft, Cardiac Catheterization, Cardiac Surgery, Carotid Endarterectomy, Internal Defibrillator, Vascular Access Devices Thoracic Surgeries: Patient denies;: Organ Transplant, Lobectomy Neurologic Surgeries: Patient denies: Neurologic Surgery HEENT Surgeries: Patient denies: Carotid Endarterectomy Abdominal Surgeries: Patient denies: Abdominal Surgery, Appendectomy, Cholecystectomy, Colonoscopy , Gastric Bypass Surgery, EGD, Hernia Repair, Splenectomy Reproductive Surgeries: Surgical HX of;: Section, Gynecologic Surgery, Tubal Ligation - Family History Family History: Reports;: Family Cancer (father's side), Family Diabetes Denies;: Family Heart Disease, Family Hypertension, Family Psychiatric Problems, Family Stroke - Social History Smoking Status: Current every day smoker Frequency of Alcohol Use: Occasionally Type of Drug Use: None Exam Vital Signs: Vital Signs Temperature 98.1 F 11/12/16 19:47 Pulse Rate 113 H 11/12/16 19:47 Respiratory Rate 18 11/12/16 19:47 Blood Pressure 93/64 11/12/16 19:47 O2 Sat by Pulse Oximetry 96 11/12/16 19:47 - General General appearance: alert, in no apparent distress - Head Head exam: Present: atraumatic, normocephalic, normal inspection - Eye Eye exam: Present: normal appearance, PERRL, EOMI - ENT ENT exam: Present: normal exam, normal oropharynx - Neck Neck exam: Present: normal inspection, full ROM, trachea midline - Chest Chest inspection: Present: normal inspection, symmetric chest wall rise - Respiratory Respiratory exam: Present: normal lung sounds bilaterally. Absent: rales, rhonchi, wheezes - Cardiovascular Cardiovascular exam: Present: regular rate, normal rhythm, normal heart sounds. Absent: murmur, rubs, gallop - Abdominal Exam Abdominal exam: Present: soft, normal bowel sounds. Absent: distention, tenderness - Extremities Exam Extremities exam: Present: full ROM. Absent: normal inspection (edematous, erythematous right foot. there is a diabetic ulcer noted to the plantar region) - Back Exam Back exam: Present: normal inspection - Neurological Exam Neurological exam: Present: alert, oriented X3, CN II-XII intact. Absent: motor sensory deficit - Psychiatric Psychiatric exam: Present: normal affect - Skin Skin exam: Present: warm, dry Course - Consultations Consultation #1: Dr. Aldana will admit patient Time: 20:27 Disposition Clinical Impression: Cellulitis, Diabetes mellitus, Diabetic foot ulcer Case discussed with: patient Disposition: Still a Patient Condition: Stable Time of Disposition: 20:27
[2016-11-12] MEDS ORDERED: SODIUM CHLORIDE 0.9% 1,000 ML IV STA (20:28)
[2016-11-12] MEDS: SODIUM CHLORIDE 0.9% 1,000 ML IV SCH (22:28)
[2016-11-12] MEDS: PIPERACILLIN/TAZOBACTAM 3,375 MG in SODIUM CHLORIDE 0.9% 100 ML IV SCH (22:31)
[2016-11-12] MEDS: metroNIDAZOLE INJ 500 MG in PREMIX 1 EACH IV SCH (22:32)
[2016-11-12] MEDS: INSULIN REGULAR 100 UNIT/ML SUBCUT SCH (22:47)
[2016-11-12] MEDS: DOCUSATE SODIUM 100 MG CAPSULE PO SCH (22:47)
[2016-11-12] MEDS: GABAPENTIN 300 MG CAPSULE PO SCH (22:47)
[2016-11-12] MEDS: KETOROLAC 15 MG/1 ML VIAL IV SCH (22:48)
[2016-11-12] MEDS: INSULIN GLARGINE 100 UNIT/ML SUBCUT SCH (22:48)
[2016-11-12] MEDS ORDERED: VANCOMYCIN INJ 1,500 MG in SODIUM CHLORIDE 0.9% 500 ML IV ONE (23:00)
[2016-11-13] MEDS: SODIUM CHLORIDE 0.9% 1,000 ML IV SCH ×4 (01:35→17:28)
[2016-11-13] MEDS: KETOROLAC 15 MG/1 ML VIAL IV SCH ×4 (01:53→20:58)
[2016-11-13] MEDS: metroNIDAZOLE INJ 500 MG in PREMIX 1 EACH IV SCH ×2 (04:06→17:31)
[2016-11-13] MEDS: PIPERACILLIN/TAZOBACTAM 3,375 MG in SODIUM CHLORIDE 0.9% 100 ML IV SCH ×2 (05:14→18:56)
[2016-11-13 06:25] LABS: Basophils % 0.4 % (0.0-0.8); Eosinophils # 0.4 10*3/uL (0.0-0.87); Eosinophils % 7.1 % (0.00-10.9); Hematocrit 29.5 VOL% (35.7-47.0); Hemoglobin 9.1 GM/DL (12.0-16.0); Immature Granulocytes % 0.4 %; Immature Granulocytes Absolute 0.02 #; Lymphocytes # 1.4 10*3/uL (1.4-4.0); Lymphocytes % 26.7 % (21.3-54.2); Mean Corpuscular HGB Conc 30.8 GM/DL (32-36); Mean Corpuscular Hemoglobin 23 PG (27-34); Mean Corpuscular Volume 75.3 FL (87-102); Mean Platelet Volume 10.3 FL (9.6-12.0); Monocytes # 0.4 10*3/uL (0.11-0.8); Monocytes % 7.3 % (1.7-12.7); Neutrophils % 58.1 % (38.7-73.9); Platelet Count 185 T/CUMM (130-400); Red Blood Count 3.92 MC/CUMM (3.8-5.5); Red Cell Distribution Width 16.6 % (9.3-17.3); White Blood Count 5.2 T/CUMM (4-12)
[2016-11-13 06:37] LABS: PT Patient Result 10.3 SECS; Partial Thromboplastin Time 29.8 SECS (0-40)
[2016-11-13 06:57] LABS: Albumin 2.4 G/DL (3.4-5.0); Bilirubin,Total 0.6 MG/DL (0.2-1.0); Calcium 7.9 MG/DL (8.5-10.1); Osmolality,Calculated 277.5 MOS/KG (273-304); Potassium 3.7 MMOL/L (3.5-5.1); Total Protein 6.2 G/DL (6.4-8.3)
--- NOTE | 2016-11-13 07:35 | CT Report ---
CT of the right foot with intravenous contrast 80 cc Omni 350. Indication: Abscess, possible foreign body. Axial images were obtained with sagittal and coronal reconstructions. There is some motion artifact present. There is diffuse subcutaneous edema, most pronounced along the ventral aspect of the forefoot. No discrete abscess collection is seen. Along the plantar aspect of the forefoot, beneath the first metatarsophalangeal joints, there is a punctate irregular area of increased density, measuring about 1 mm. It measures 9 mm from the skin surface, and 10 mm from the bone. There are no bony changes to suggest fracture or active osteomyelitis. No air in the soft tissues. No abnormal mass is seen. Impression: There is diffuse cellulitis, more prominent along the plantar aspect of the forefoot. No abscess is seen. No findings of osteomyelitis. There is an irregular punctate radiodensity, along the plantar aspect of the first metatarsophalangeal joint. While this could represent calcification, no additional soft tissue calcifications are noted, and calcifications tend to occur more superficially. Therefore foreign body is a likely consideration. The CT exam was performed using one or more of the following dose reduction techniques: Automated exposure control, adjustment of the mA and/or kV according to patient size, or use of iterative reconstruction technique. PROCEDURE INTERPRETED AT [facility] DEPARTMENT OF RADIOLOGY Final Report Signed by: Dr. Denisse Walker
--- NOTE | 2016-11-13 08:25 | XRay Report ---
XR chest 2V Indication: Abscess of the right foot Comparison: Chest x-ray dated June 27, 2015 Technique: Frontal and lateral views of the chest Findings: Heart size appears within normal limits. Linear atelectasis/scarring within the left lung base. No pneumothorax or pleural effusion. Osseous and surrounding soft tissue structures appear grossly unchanged. IMPRESSION: Linear left basilar atelectasis/scarring. PROCEDURE INTERPRETED AT [facility] DEPARTMENT OF RADIOLOGY Final Report Signed by: Dr Jose A Westfall
--- NOTE | 2016-11-13 08:33 | XRay Report ---
Right foot, 3 views. Indication: Abscess. Possible glass. Comparison: October 31, 2016. There is edema of the forefoot. No air in the soft tissues. No visible foreign body. Note that glass is sometimes not radiopaque. Scattered degenerative changes are present within the foot. No air in the soft tissues. Impression: Edema of the forefoot, particularly along the plantar aspect of the foot. No evidence of active osteomyelitis. PROCEDURE INTERPRETED AT [facility] DEPARTMENT OF RADIOLOGY Final Report Signed by: Dr. Denisse Walker
[2016-11-13] MEDS: INSULIN REGULAR 100 UNIT/ML SUBCUT SCH ×4 (08:54→21:00)
[2016-11-13] MEDS ORDERED: VANCOMYCIN INJ 1,250 MG in SODIUM CHLORIDE 0.9% 250 ML IV SCH (09:00)
--- NOTE | 2016-11-13 09:37 | EKG Report ---
Stationary ECG Study [facility] Test Date: 11/13/2016 8:03:24 AM Pat Name: ANNETTE KAUFMAN Department: Room: 332 Gender: F Cancellation Clerk: DONAL : 1975 Requested by: Neil Aldana Order Number: [id number] Reading MD: RODDY LLANES Intervals [place] Rate: 88 P: 59 TX: 127 QRS: 70 QRSD: 86 T: -4 QT: 352 QTc: 398 Interpretive Statements SINUS RHYTHM Electronically Signed On 11-17-16 22:02:04 CDT by RODDY LLANES [email or web address]
[2016-11-13] MEDS ORDERED: CLINDAMYCIN INJ 900 MG in PREMIX 1 EACH IV ONE ×2 (10:00→14:00)
[2016-11-13] MEDS: ASPIRIN EC 81 MG TABLET PO SCH (10:38)
[2016-11-13] MEDS: DOCUSATE SODIUM 100 MG CAPSULE PO SCH ×2 (10:38→20:59)
[2016-11-13] MEDS: PANTOPRAZOLE 40 MG TABLET PO SCH (10:38)
[2016-11-13] MEDS: VANCOMYCIN INJ 1,250 MG in SODIUM CHLORIDE 0.9% 250 ML IV SCH ×2 (11:32→23:43)
[2016-11-13] MEDS: ENOXAPARIN 40 MG/0.4 ML SYRINGE SUBCUT SCH (14:44)
[2016-11-13] MEDS ORDERED: BUPIVACAINE 0.25% 50 ML VIAL ONE (14:55)
[2016-11-13] MEDS ORDERED: BACITRACIN OINT 0.9 GM PACK TOP ONE (15:38)
[2016-11-13] MEDS ORDERED: MEPERIDINE 25 MG/1 ML VIAL IV PRN (15:48)
[2016-11-13] MEDS ORDERED: HYDROmorphone 2 MG/1 ML VIAL IV PRN (15:48)
[2016-11-13] MEDS ORDERED: ONDANSETRON 4 MG/2 ML VIAL IV PRN (15:48)
--- NOTE | 2016-11-13 15:51 | Operative Note ---
Date of procedure: 11/13/16 Pre-op diagnosis: Cellulitis abscess right foot possible foreign body Post-op diagnosis: same Procedure: Operative note: Preoperative diagnosis: Cellulitis possible abscess formation right foot with possible foreign body Postoperative diagnosis: Cellulitis of the right foot questionable foreign body Procedure: Excisional debridement and drainage of plantar surface right foot Surgeon Dr. Aldana Microarray Specialist Sonia Hui, SHOP WORKER ACNP Anesthesia: General with local Brief history: 41-year-old female who is diabetic on insulin who came in last week with a foreign body in the right foot from stepping on some glass. She describes having been removed but now comes back with increasing pain and swelling in the foot itself and some erythematous changes. Plain films are unremarkable CT scan also did not show a clear abscess cavity but did have one area of questionable foreign material that was really small. At that point we will put her on some IV antibiotics and like to bring his surgery see if there is anything that we can clean up drain. Procedure: With patient in the supine position prepped and draped in a sterile fashion timeout and antibiotics completed we were able to advance to the area of the metatarsal plantar surface on the right foot at the first metatarsal head. I removed some loose skin on the outside of it did not see any necrotic areas there is some skin changes at the plantar surface of the foot at the first metatarsal head. This is the area of the CT scan was describing is a small area that potentially is some form material. We put a needle and did not get any clear drainage of abscess fluid. Elected to go ahead and make a small incision is area we think that the original wound was that. We opened this up with an with a hemostat and then carefully began to try to explore this is best we could. Could not easily seen large foreign material present. But the hemostat in felt round could not clearly say out felt any foreign material. Seem to be a little bit of the cavity in this area and I was able to dissected the superior pole little bit of tissue out that was sent for cultures. Could not clearly say I found any foreign material at this point or any marked purulent material. I did not want extend his incision has a big wound on his foot at this time even though still had a little wound on the plantar surface. I elected to leave it open at this point is put some ointment on along with the dressing and see if we can see how this responds to further treatment antibiotic louie. Dressings were applied and the patient taken recovery room. Estimated blood loss 5 cc Sponge count correct 2 Drains none Complications none Condition stable satisfactory Anesthesia: GETA, local (0.25% Marcaine plain mixed [id number] 1% Xylocaine plain) Surgeon / Physician: Neil Aldana Microarray Specialist: Sonia Hui Estimated blood loss: minimal Specimens: other (Tissue for culture) Condition: stable Disposition: floor Results - Labs CBC & BMP: 11/13/16 05:48 11/13/16 05:48 Discharge Plan - Discharge Medications No Action Gabapentin Cap/Tab [Neurontin Cap/Tab] 300 mg PO BEDTIME Aspirin EC Tab 81 mg PO DAILY tablet Insulin Detemir [Levemir] 40 unit SUBCUT BEDTIME injection Acetaminophen Tab [Tylenol Tab] 650 mg PO Q6H PRN #0 tablet PRN Reason: Pain Mild (1-3) And/Or Fever metFORMIN [Glucophage] 850 mg PO BID W/MEALS Mupirocin 2% Oint [Bactroban 2% Oint] 1 applic TOP TID Acetamin/Codeine 300-30 Tab [Tylenol/Codeine #3] 1 tablet PO Q4H Saxagliptin HCl [Onglyza] 2.5 mg PO QPM Clindamycin HCl [Clindamycin Cap] 600 mg PO Q8HR #60 capsule Levofloxacin Tab [Levaquin Tab] 500 mg PO DAILY #10 tablet - Follow Up or Referral - Forms/Instructions
[2016-11-13] MEDS ORDERED: MIDAZOLAM 2 MG/2 ML VIAL ONE (15:56)
[2016-11-13] MEDS ORDERED: fentaNYL 100 MCG/2 ML VIAL ONE (15:56)
[2016-11-13] MEDS ORDERED: LACTATED RINGERS 1,000 ML IV SCH (16:00)
[2016-11-13] MEDS: sitaGLIPtin 100 MG TABLET PO SCH (20:59)
[2016-11-13] MEDS: INSULIN GLARGINE 100 UNIT/ML SUBCUT SCH (21:00)
[2016-11-13] MEDS: GABAPENTIN 300 MG CAPSULE PO SCH (21:00)
[2016-11-13] MEDS: CLINDAMYCIN INJ 900 MG in PREMIX 1 EACH IV SCH (23:16)
[2016-11-14] MEDS: metroNIDAZOLE INJ 500 MG in PREMIX 1 EACH IV SCH ×2 (01:09→09:15)
[2016-11-14] MEDS: KETOROLAC 15 MG/1 ML VIAL IV SCH ×4 (02:27→21:07)
[2016-11-14] MEDS: PIPERACILLIN/TAZOBACTAM 3,375 MG in SODIUM CHLORIDE 0.9% 100 ML IV SCH ×3 (02:30→17:54)
[2016-11-14 05:32] LABS: Basophils % 0.7 % (0.0-0.8); Eosinophils # 0.3 10*3/uL (0.0-0.87); Eosinophils % 6.9 % (0.00-10.9); Hematocrit 28.5 VOL% (35.7-47.0); Hemoglobin 8.6 GM/DL (12.0-16.0); Immature Granulocytes % 0.2 %; Immature Granulocytes Absolute 0.01 #; Lymphocytes # 1.1 10*3/uL (1.4-4.0); Lymphocytes % 24.9 % (21.3-54.2); Mean Corpuscular HGB Conc 30.2 GM/DL (32-36); Mean Corpuscular Hemoglobin 23 PG (27-34); Mean Platelet Volume 10.1 FL (9.6-12.0); Monocytes # 0.2 10*3/uL (0.11-0.8); Monocytes % 4.8 % (1.7-12.7); Neutrophils # 2.6 10*3/uL (1.4-7.4); Neutrophils % 62.5 % (38.7-73.9); Platelet Count 179 T/CUMM (130-400); White Blood Count 4.2 T/CUMM (4-12)
[2016-11-14 06:04] LABS: Calcium 7.3 MG/DL (8.5-10.1); Osmolality,Calculated 286.1 MOS/KG (273-304); Potassium 4.2 MMOL/L (3.5-5.1)
[2016-11-14] MEDS: CLINDAMYCIN INJ 900 MG in PREMIX 1 EACH IV SCH (06:26)
[2016-11-14] MEDS: SODIUM CHLORIDE 0.9% 1,000 ML IV SCH ×2 (07:05→13:36)
--- NOTE | 2016-11-14 08:25 | General Surgery Progress Note ---
Assessment and Plan (1) Abscess of skin or subcutaneous tissue Status: Resolved Assessment and plan: Impression: 1. Abscess of the right foot questionable foreign body 2. Diabetes insulin-dependent. Plan: IV antibiotics and surgery for drainage. We will obtain a CT scan to see if anything can be seen especially fluid pockets that would may aid in the drainage of this fluid. 11/14/2016 Patient is postop from incision and drainage of this area on the foot. No clear foreign body material was found and some cultures were taken. Starting wound care today but may consider letting her go home tomorrow with this degree of wound care. Current Visit: No Qualifiers: Site of cutaneous abscess: extremity Site of cutaneous abscess of extremity : foot Laterality: right Qualified Code(s): L02.611 - Cutaneous abscess of right foot Subjective Patient reports: Present: feels better, tolerating a regular diet, afebrile Exam - Constitutional Vitals: Period Temp Pulse Resp BP Sys/Muniz Pulse Ox Last 24 Hr 97.1 F-98.5 F 75-91 12-18 76-152/42-92 94-100 General appearance: no acute distress - Head Head exam: Present: normal inspection - ENT ENT exam: Present: normal exam - Neck Neck exam: Present: normal inspection - Respiratory Respiratory exam: Present: clear to auscultation bilaterally - Cardiovascular Cardiovascular exam: Present: RRR - GI/Abdominal GI/Abdominal exam: Present: normal bowel sounds, soft - Extremities Exam Extremities exam: Present: other (Wound and foot are stable with no unusual drainage and no redness.) - Neurological Exam Neurological exam: Present: alert, oriented X3, CN II-XII intact - Skin Skin exam: Present: normal color, warm, dry Results - Labs CBC & BMP: 11/14/16 04:50 11/14/16 04:50 Lab Results: I have reviewed the past 24 hour labs
[2016-11-14] MEDS: INSULIN REGULAR 100 UNIT/ML SUBCUT SCH ×4 (08:36→21:10)
--- NOTE | 2016-11-14 08:51 | Anesthesia ---
Anesthesia Post OP - Post Ansesthetic Evaluation Patient seen in post op: Yes Resp: within normal limits CV: within normal limits Mental: within normal limits Temp: within normal limits [id number]: within normal limits Nausea and Vomiting: within normal limits Pain: within normal limits
[2016-11-14] MEDS: PANTOPRAZOLE 40 MG TABLET PO SCH (09:14)
[2016-11-14] MEDS: DOCUSATE SODIUM 100 MG CAPSULE PO SCH ×2 (09:14→21:07)
[2016-11-14] MEDS: ASPIRIN EC 81 MG TABLET PO SCH (09:14)
[2016-11-14] MEDS: VANCOMYCIN INJ 1,250 MG in SODIUM CHLORIDE 0.9% 250 ML IV SCH (15:12)
[2016-11-14] MEDS: ENOXAPARIN 40 MG/0.4 ML SYRINGE SUBCUT SCH (16:02)
[2016-11-14] MEDS ORDERED: SKIN HEALING OINT (AQUAPHOR) 50 GM TUBE TOP PRN (17:51)
[2016-11-14] MEDS: BACITRACIN OINT 0.9 GM PACK TOP SCH (18:10)
[2016-11-14] MEDS: sitaGLIPtin 100 MG TABLET PO SCH (21:07)
[2016-11-14] MEDS: GABAPENTIN 300 MG CAPSULE PO SCH (21:07)
[2016-11-14] MEDS: metroNIDAZOLE 500 MG TABLET PO SCH (21:07)
[2016-11-14] MEDS: INSULIN GLARGINE 100 UNIT/ML SUBCUT SCH (21:11)
[2016-11-15] MEDS: KETOROLAC 15 MG/1 ML VIAL IV SCH ×2 (02:08→10:29)
[2016-11-15] MEDS: VANCOMYCIN INJ 1,250 MG in SODIUM CHLORIDE 0.9% 250 ML IV SCH (02:08)
[2016-11-15] MEDS: PIPERACILLIN/TAZOBACTAM 3,375 MG in SODIUM CHLORIDE 0.9% 100 ML IV SCH ×2 (03:36→10:41)
[2016-11-15] MEDS: SODIUM CHLORIDE 0.9% 1,000 ML IV SCH (07:11)
[2016-11-15] MEDS: INSULIN REGULAR 100 UNIT/ML SUBCUT SCH ×2 (08:47→12:04)
--- NOTE | 2016-11-15 10:20 | Discharge Summary ---
Hospital Course - Hospital Course Hospital Course: Discharge summary: Discharge diagnosis: 1. Cellulitis of the right foot secondary to a foreign body 2. Diabetes insulin-dependent Procedure: Incision and drainage right foot with exploration for foreign body Surgeon Dr. Aldana Brief summary: 41-year-old female who is transferred down here for us to see because of increased pain and swelling in the right foot. Sometime last week she was seen in emergency room where a piece of glass was removed from her foot. She was sent out and she claims back with increased swelling and pain in that area of the right foot where the foreign material is present. She was admitted put on IV antibiotics and a CT scan of the foot was performed. No clear abscess was seen although there was a suggestion of a possible foreign material present in the foot at this time. This is glass and not something that we can see on plain films. I like to take her surgery which point we made an incision over the most fluctuant area that we could find finding a little cavity there but no unusual drainage seen. We did dissected and they are attempting to find any foreign material but could not at this time. We did take some tissue for cultures. With that completed then we start her on some continued IV antibiotics as well as wound care at this time. We will have her clean twice a day and some ointment on the incision putting a Mepilex border gauze in place and will get her some cotton socks to give her some compression. We have her special shoe to wear at this time until we get some healing going. The wound has done okay still little tender and a little bit of redness there but no unusual drainage present. At this point with the cultures being negative I would like to go ahead and send her home continue some antibiotics of Cleocin and Flagyl and some basic local wound care twice a day to his foot. Will hopefully get this to heal on up and get things clear up before coming off antibiotics. I will follow her up about a week from Friday and basically see exactly what her wound and foot is doing at that time. - Time spent with patient Time with patient DS: Less than 30 minutes Diagnosis - Discharge Diagnosis (1) Abscess of skin or subcutaneous tissue Status: Chronic Specialty Discharge - Follow Up or Referrals Follow up with: Neil Aldana MD [Physician] - 11/25/16 - Speciality Discharge Instructions Surgery Instructions: 1. Do wound care to the right foot twice a day. 2. Continue present antibiotics. 3. Used cast shoe when up and crutches as needed but try to not bear weight on the right forefoot Discharge Plan - Discharge Data Disposition: Disch To Home/Self Care Condition at Discharge: Stable Discharge Diet: diabetic diet Activity: increase activity as tolerated, no lifting, no prolonged standing, other (Try to avoid bearing weight on the forefoot) Hygiene: may shower Weight Bearing at Discharge: other (Try not to bear weight on the forefoot) Driving: not until seen by doctor Contact your physician if you experience:: fever over 101, Redness or swelling, Bleeding, pain uncontrolled by pain medications - Discharge Medications New Acetaminophen Tab [Tylenol Tab] 650 mg PO Q6H PRN #0 tablet PRN Reason: Pain Mild (1-3) And/Or Fever HYDROcodone/ACETAMIN 7.5-325 [[place] 7.5-325] 1 tablet PO Q6H PRN #40 tablet PRN Reason: Pain Moderate (4-7) metroNIDAZOLE TAB [Flagyl Cap/Tab] 500 mg PO TID #14 tablet Skin Healing Oint (Aquaphor) [Aquaphor] 1 applic TOP PRN PRN #1 applicator PRN Reason: Dry Skin Continue Gabapentin Cap/Tab [Neurontin Cap/Tab] 300 mg PO BEDTIME Aspirin EC Tab 81 mg PO DAILY tablet Insulin Detemir [Levemir] 40 unit SUBCUT BEDTIME injection Acetaminophen Tab [Tylenol Tab] 650 mg PO Q6H PRN #0 tablet PRN Reason: Pain Mild (1-3) And/Or Fever metFORMIN [Glucophage] 850 mg PO BID W/MEALS Mupirocin 2% Oint [Bactroban 2% Oint] 1 applic TOP TID Acetamin/Codeine 300-30 Tab [Tylenol/Codeine #3] 1 tablet PO Q4H Saxagliptin HCl [Onglyza] 2.5 mg PO QPM Clindamycin HCl [Clindamycin Cap] 600 mg PO Q8HR #60 capsule Levofloxacin Tab [Levaquin Tab] 500 mg PO DAILY #10 tablet - Follow Up or Referral - Forms/Instructions Exam - Constitutional Vitals: Period Temp Pulse Resp BP Sys/Munzi Pulse Ox Last 24 Hr 97.7 F-99.2 F 71-85 17-20 118-156/67-92 96-99 General appearance: no acute distress - Head Head exam: Present: normal inspection - ENT ENT exam: Present: normal exam - Neck Neck exam: Present: normal inspection - Respiratory Respiratory exam: Present: clear to auscultation bilaterally - Cardiovascular Cardiovascular exam: Present: regular rate and rhythm - GI/Abdominal GI/Abdominal exam: Present: normal bowel sounds, soft - Extremities Exam Extremities exam: Present: other (Right foot warp dyeing tender wound incision looks clean with no unusual drainage no unusual fluctuance noted at this time no erythema of the foot) - Back Exam Back exam: Present: normal inspection - Neurological Exam Neurological exam: Present: alert, oriented X3, CN II-XII intact - Psychiatric Psychiatric exam: Present: normal affect, normal mood, anxious - Skin Skin exam: Present: normal color, warm, dry Discharge Results Labs on day of discharge: Labs from last 24 hours 11/15/16 11/14/16 11/14/16 07:00 20:14 17:12 POC Glucose 119 H 251 H 200 H Vancomycin Trough 11/14/16 11/14/16 11:26 09:59 POC Glucose 147 H Vancomycin Trough 17.1 DS: Provider Date of admission: 11/12/16 20:01 Primary care physician: Sharyn Golden MD Attending physician on admission: Neil Aldana MD Consults: 11/12/16 20:10 Consult to Anesthesiology [CONS] Routine Consulting Provider: Reason for Anesthesiology: Pre-op Clearance Discharging clinician: Neil Aldana MD Expected date of discharge: 11/15/16
[2016-11-15] MEDS: PANTOPRAZOLE 40 MG TABLET PO SCH (10:28)
[2016-11-15] MEDS: ASPIRIN EC 81 MG TABLET PO SCH (10:28)
[2016-11-15] MEDS: DOCUSATE SODIUM 100 MG CAPSULE PO SCH (10:28)
[2016-11-15] MEDS: metroNIDAZOLE 500 MG TABLET PO SCH (10:29)
[2016-11-15 11:56] VITALS: BP 156/98
[2016-11-15] MEDS: BACITRACIN OINT 0.9 GM PACK TOP SCH (14:15)
== END 2016-11-15 13:06 | disposition home or self-care (01) | DRG 572 ==
LOC: N.ED 19:38 → N.EDINP 20:01 → N.3E 22:04
PROVIDERS: ADMIT Specialist; ATTEND Specialist

== ENCOUNTER 2020-04-04 17:40 | Inpatient (IN) ==
[2020-04-04] MEDS ORDERED: CEFEPIME 1,000 MG in SODIUM CHLORIDE 0.9% 100 ML IV STA (20:22)
[2020-04-04] MEDS ORDERED: CEFEPIME 1,000 MG VIAL ONE (20:22)
[2020-04-04] MEDS ORDERED: SODIUM CHLORIDE 0.9% 100 ML IV ONE (20:22)
[2020-04-04 20:55] LABS: Basophils % 0.2 % (0.0-0.8); Eosinophils # 0.1 10*3/uL (0.0-0.87); Eosinophils % 0.9 % (0.00-10.9); Hematocrit 30.8 VOL% (35.7-47.0); Hemoglobin 10.7 GM/DL (12.0-16.0); Immature Granulocytes % 0.2 %; Immature Granulocytes Absolute 0.01 #; Lymphocytes # 1.6 10*3/uL (1.4-4.0); Lymphocytes % 25.6 % (21.3-54.2); Mean Corpuscular HGB Conc 34.7 GM/DL (32-36); Mean Platelet Volume 10.2 FL (9.6-12.0); Monocytes % 6.1 % (1.7-12.7); Platelet Count 162 T/CUMM (130-400); Red Blood Count 3.54 MC/CUMM (3.8-5.5); Red Cell Distribution Width 12.3 % (9.3-17.3); White Blood Count 6.4 T/CUMM (4-12)
[2020-04-04] MEDS ORDERED: diphenhydrAMINE 50 MG/1 ML VIAL IV STA (21:00)
[2020-04-04] MEDS ORDERED: diphenhydrAMINE 50 MG/1 ML VIAL ONE (21:00)
[2020-04-04] MEDS ORDERED: PIPERACILLIN/TAZOBACTAM 3,375 MG in SODIUM CHLORIDE 0.9% 100 ML IV STA (21:11)
[2020-04-04 21:12] LABS: Albumin 2.6 G/DL (3.4-5.0); Bilirubin,Total 0.6 MG/DL (0.2-1.0); Calcium 8.5 MG/DL (8.5-10.1); Osmolality,Calculated 281.5 MOS/KG (273-304); Total Protein 7.5 G/DL (6.4-8.3)
[2020-04-04] MEDS ORDERED: LACTATED RINGERS 1,000 ML IV ONE (21:24)
[2020-04-04 21:55] LABS: Sedimentation Rate-Westergren 112 MM/HR (0-20)
[2020-04-04] MEDS: VANCOMYCIN INJ 1,750 MG in SODIUM CHLORIDE 0.9% 500 ML IV SCH (22:50)
[2020-04-04] MEDS ORDERED: ACETAMINOPHEN 325 MG TABLET PO PRN (23:38)
[2020-04-04] MEDS ORDERED: DOCUSATE SODIUM 100 MG CAPSULE PO PRN (23:38)
[2020-04-04] MEDS ORDERED: HYDROmorphone 2 MG/1 ML VIAL IV STA (23:38)
[2020-04-04] MEDS ORDERED: GLUCAGON 1 MG VIAL IM PRN (23:38)
[2020-04-04] MEDS ORDERED: DEXTROSE 50% 25 GM/50 ML VIAL IV PRN (23:38)
[2020-04-04] MEDS: SODIUM CHLORIDE 0.9% 1,000 ML IV SCH (23:45)
[2020-04-05] MEDS: ONDANSETRON 4 MG/2 ML VIAL IV PRN ×2 (00:15→09:25)
[2020-04-05] MEDS: HYDROmorphone 2 MG/1 ML VIAL IV PRN ×3 (03:00→16:55)
[2020-04-05] MEDS: PIPERACILLIN/TAZOBACTAM 3,375 MG in SODIUM CHLORIDE 0.9% 100 ML IV SCH ×3 (05:30→20:22)
[2020-04-05] MEDS ORDERED: SODIUM CHLORIDE 0.9% 0 ML IV ONE (06:00)
[2020-04-05 07:02] LABS: Basophils % 0.2 % (0.0-0.8); Eosinophils # 0.1 10*3/uL (0.0-0.87); Eosinophils % 2.4 % (0.00-10.9); Hematocrit 29.4 VOL% (35.7-47.0); Hemoglobin 10.1 GM/DL (12.0-16.0); Immature Granulocytes % 0.3 %; Immature Granulocytes Absolute 0.02 #; Lymphocytes # 1.7 10*3/uL (1.4-4.0); Lymphocytes % 28.7 % (21.3-54.2); Mean Corpuscular HGB Conc 34.4 GM/DL (32-36); Mean Platelet Volume 10.4 FL (9.6-12.0); Monocytes % 7.4 % (1.7-12.7); Platelet Count 159 T/CUMM (130-400); Red Blood Count 3.34 MC/CUMM (3.8-5.5); Red Cell Distribution Width 12.6 % (9.3-17.3); White Blood Count 5.8 T/CUMM (4-12)
[2020-04-05] MEDS: INSULIN LISPRO 100 UNIT/ML SUBCUT SCH ×5 (08:08→21:39)
[2020-04-05 08:51] LABS: Risk Ratio 2.77; Thyroid Stimulating Hormone 3.3 uIU/ml (0.358-3.74); VLDL CHOLESTEROL 36.2 MG/DL
[2020-04-05 09:26] LABS: Osmolality,Calculated 283.4 MOS/KG (273-304)
[2020-04-05] MEDS: VANCOMYCIN INJ 1,750 MG in SODIUM CHLORIDE 0.9% 500 ML IV SCH (10:12)
[2020-04-05] MEDS ORDERED: BUPIVACAINE MPF 0.25% 30 ML VIAL ONE (11:57)
[2020-04-05] MEDS ORDERED: propofoL 200 MG/20 ML VIAL IV ONE (13:20)
[2020-04-05] MEDS ORDERED: LIDOCAINE 2% 5 ML VIAL ONE (13:20)
[2020-04-05] MEDS ORDERED: ONDANSETRON 4 MG/2 ML VIAL ONE (13:21)
[2020-04-05] MEDS ORDERED: fentaNYL 100 MCG/2 ML VIAL ONE (13:21)
[2020-04-05] MEDS ORDERED: MIDAZOLAM 2 MG/2 ML VIAL ONE (13:21)
[2020-04-05] MEDS ORDERED: SEVOFLURANE 1 UNIT/15 MINUTE INH ONE (13:21)
[2020-04-05] MEDS: SODIUM CHLORIDE 0.9% 1,000 ML IV SCH (13:30)
[2020-04-05] MEDS ORDERED: INSULIN GLARGINE 100 UNIT/ML SUBCUT SCH ×2 (21:00)
[2020-04-05] MEDS ORDERED: SIMVASTATIN 10 MG TABLET PO SCH (21:00)
[2020-04-05] MEDS ORDERED: GABAPENTIN 300 MG CAPSULE PO SCH (21:00)
[2020-04-06] MEDS: VANCOMYCIN INJ 1,750 MG in SODIUM CHLORIDE 0.9% 500 ML IV SCH ×2 (00:22→09:36)
[2020-04-06] MEDS: HYDROmorphone 2 MG/1 ML VIAL IV PRN (00:38)
[2020-04-06] MEDS: SODIUM CHLORIDE 0.9% 1,000 ML IV SCH ×2 (01:06→06:07)
[2020-04-06] MEDS: ONDANSETRON 4 MG/2 ML VIAL IV PRN (03:03)
[2020-04-06] MEDS: PIPERACILLIN/TAZOBACTAM 3,375 MG in SODIUM CHLORIDE 0.9% 100 ML IV SCH ×2 (05:55→14:07)
[2020-04-06 06:04] LABS: Basophils % 0.4 % (0.0-0.8); Eosinophils # 0.1 10*3/uL (0.0-0.87); Eosinophils % 1.9 % (0.00-10.9); Hematocrit 27.1 VOL% (35.7-47.0); Immature Granulocytes % 0.2 %; Immature Granulocytes Absolute 0.01 #; Lymphocytes # 1.1 10*3/uL (1.4-4.0); Lymphocytes % 23.2 % (21.3-54.2); Mean Corpuscular HGB Conc 33.2 GM/DL (32-36); Mean Corpuscular Volume 90.6 FL (87-102); Mean Platelet Volume 10.2 FL (9.6-12.0); Monocytes % 7.2 % (1.7-12.7); Neutrophils % 67.1 % (38.7-73.9); Platelet Count 143 T/CUMM (130-400); Red Blood Count 2.99 MC/CUMM (3.8-5.5); Red Cell Distribution Width 12.6 % (9.3-17.3); White Blood Count 4.7 T/CUMM (4-12)
[2020-04-06 06:23] LABS: Calcium 7.8 MG/DL (8.5-10.1); Osmolality,Calculated 279.3 MOS/KG (273-304)
[2020-04-06] MEDS: INSULIN LISPRO 100 UNIT/ML SUBCUT SCH ×2 (07:46→11:21)
[2020-04-06] MEDS ORDERED: OMEGA 3 ACID ETHYL ESTERS 1 GM CAPSULE PO SCH (09:00)
[2020-04-06] MEDS ORDERED: lisinopriL 5 MG TABLET PO SCH (09:00)
[2020-04-06] MEDS ORDERED: FERROUS SULFATE 325 MG TABLET PO SCH (09:00)
[2020-04-06] MEDS ORDERED: SODIUM HYPOCHLORITE 0.25% IRRIG 473 ML BOTTLE TOP SCH (11:00)
[2020-04-06 11:47] VITALS: BP 142/82
== END 2020-04-06 14:20 | disposition home or self-care (01) | DRG 197 ==
LOC: N.ED 17:40 → N.EDINP 23:36 → N.3E 04-05 12:35
PROVIDERS: ADMIT Internal Medicine; ATTEND Internal Medicine

== ENCOUNTER 2020-07-03 19:40 | Inpatient (IN) ==
[2020-07-03 20:30] LABS: Basophils % 0.4 % (0.0-0.8); Eosinophils # 0.2 10*3/uL (0.0-0.87); Eosinophils % 2.7 % (0.00-10.9); Hematocrit 30.3 VOL% (35.7-47.0); Hemoglobin 10.4 GM/DL (12.0-16.0); Immature Granulocytes % 0.6 %; Immature Granulocytes Absolute 0.04 #; Lymphocytes # 1.3 10*3/uL (1.4-4.0); Lymphocytes % 18.5 % (21.3-54.2); Mean Corpuscular HGB Conc 34.3 GM/DL (32-36); Mean Corpuscular Volume 87.3 FL (87-102); Mean Platelet Volume 9.5 FL (9.6-12.0); Monocytes % 9.7 % (1.7-12.7); Neutrophils % 68.1 % (38.7-73.9); Platelet Count 93 T/CUMM (130-400); Red Blood Count 3.47 MC/CUMM (3.8-5.5); Red Cell Distribution Width 13.7 % (9.3-17.3)
[2020-07-03 20:45] LABS: INR 0.9; PT Patient Result 10.2 SECS (9.8-11.9); Partial Thromboplastin Time 29.7 SECS (23.9-33.8)
[2020-07-03 20:46] LABS: Albumin 2.2 G/DL (3.4-5.0); Bilirubin,Total 0.7 MG/DL (0.2-1.0); Calcium 7.8 MG/DL (8.5-10.1); Potassium 5.3 MMOL/L (3.5-5.1)
[2020-07-03] MEDS ORDERED: MAGNESIUM SULF RIDER 2 GM in PREMIX 1 EACH IV STA (22:08)
[2020-07-03] MEDS ORDERED: hydrALAZINE 20 MG/1 ML VIAL IV STA (22:10)
[2020-07-03] MEDS ORDERED: FUROSEMIDE 40 MG/4 ML VIAL IV STA (22:13)
[2020-07-04] MEDS ORDERED: NICOTINE 21 MG/24 HR PATCH TRANSDERM PRN (00:11)
[2020-07-04] MEDS ORDERED: GLUCAGON 1 MG VIAL IM PRN (00:11)
[2020-07-04] MEDS ORDERED: DEXTROSE 50% 25 GM/50 ML VIAL IV PRN (00:11)
[2020-07-04] MEDS ORDERED: diphenhydrAMINE CAP 25 MG CAPSULE PO PRN (00:11)
[2020-07-04] MEDS ORDERED: hydrALAZINE 20 MG/1 ML VIAL IV PRN (00:11)
[2020-07-04] MEDS ORDERED: guaiFENesin/DM ER 600-30 MG TABLET PO PRN (00:11)
[2020-07-04] MEDS ORDERED: ONDANSETRON 4 MG/2 ML VIAL IV PRN (00:11)
[2020-07-04] MEDS ORDERED: LEVOFLOXACIN INJ 500 MG in PREMIX 1 EACH IV STA (00:51)
[2020-07-04 02:13] LABS: Risk Ratio 2.18; VLDL CHOLESTEROL 21.8 MG/DL
[2020-07-04 02:43] LABS: Amorphous Crystals,Urine Occasional /HPF (Few); Bilirubin,Urine Negative (Negative); Blood, Urine Moderate mg/dL (Negative); Glucose,Urine (UA) 150 mg/dL (Negative); Hyaline Casts,Urine 10 /LPF (0-3); Ketones,Urine Negative (Negative); Mucus,Urine Occasional /LPF (Occasional); Nitrite,Urine Negative (Negative); Protein,Urine >=500 MG/DL; RBC,Urine 46 /HPF (0-4); Squamous Epithelial Cell,Urine Occasional /HPF (0-10); Urine Appearance Slightly Hazy (Clear); Urine Color Yellow (Yellow); Urine Specific Gravity 1.017 (1.001-1.035); Urine Urobilinogen < 2.0 EU/DL (0.2-1.0); WBC,Urine 30 /HPF (0-6)
[2020-07-04 05:48] LABS: Basophils % 0.2 % (0.0-0.8); Eosinophils # 0.2 10*3/uL (0.0-0.87); Eosinophils % 2.5 % (0.00-10.9); Hematocrit 28.3 VOL% (35.7-47.0); Hemoglobin 9.4 GM/DL (12.0-16.0); Immature Granulocytes % 1.3 %; Immature Granulocytes Absolute 0.08 #; Lymphocytes % 16.7 % (21.3-54.2); Mean Corpuscular HGB Conc 33.2 GM/DL (32-36); Mean Corpuscular Volume 89.3 FL (87-102); Mean Platelet Volume 10.6 FL (9.6-12.0); Monocytes % 10.8 % (1.7-12.7); Neutrophils % 68.5 % (38.7-73.9); Platelet Count 81 T/CUMM (130-400); Red Blood Count 3.17 MC/CUMM (3.8-5.5); Red Cell Distribution Width 13.6 % (9.3-17.3)
[2020-07-04 06:08] LABS: Platelet Estimate Decreased
[2020-07-04 06:09] LABS: Anisocytosis Slight; Macrocytosis 1+; Spherocytes Few
[2020-07-04 06:15] LABS: Albumin 1.9 G/DL (3.4-5.0); Bilirubin,Total 1.3 MG/DL (0.2-1.0); Calcium 7.7 MG/DL (8.5-10.1); Osmolality,Calculated 303.8 MOS/KG (273-304); Potassium 5.7 MMOL/L (3.5-5.1); Total Protein 6.4 G/DL (6.4-8.3)
[2020-07-04] MEDS ORDERED: SODIUM POLYSTYRENE SULFATE 15 GM/60 ML BOTTLE PO STA (07:50)
[2020-07-04] MEDS: INSULIN REGULAR 100 UNIT/ML SUBCUT SCH ×4 (09:31→21:09)
[2020-07-04] MEDS: OMEGA 3 ACID ETHYL ESTERS 1 GM CAPSULE PO SCH (09:32)
[2020-07-04] MEDS: FERROUS SULFATE 325 MG TABLET PO SCH (09:32)
[2020-07-04] MEDS: FUROSEMIDE 40 MG/4 ML VIAL IV SCH ×2 (09:32→16:04)
[2020-07-04] MEDS ORDERED: MAGNESIUM SULF RIDER 2 GM in PREMIX 1 EACH IV PRN (10:49)
[2020-07-04] MEDS ORDERED: MAGNESIUM SULF RIDER 4 GM in PREMIX 1 EACH IV PRN (10:49)
[2020-07-04] MEDS: carvediloL 6.25 MG TABLET PO SCH ×2 (11:21→21:08)
[2020-07-04] MEDS: MORPHINE 4 MG/1 ML VIAL IV PRN ×2 (11:24→21:18)
[2020-07-04] MEDS: ALBUTEROL 0.63 MG/3 ML NEB RESP TX SCH ×2 (14:12→20:23)
[2020-07-04] MEDS: HEPARIN 5,000 UNIT/1 ML VIAL SUBCUT SCH (16:04)
[2020-07-04] MEDS: GABAPENTIN 600 MG TABLET PO SCH (21:08)
[2020-07-04] MEDS: SIMVASTATIN 10 MG TABLET PO SCH (21:08)
[2020-07-05] MEDS: ALBUTEROL 0.63 MG/3 ML NEB RESP TX SCH ×4 (02:11→18:58)
[2020-07-05] MEDS: HEPARIN 5,000 UNIT/1 ML VIAL SUBCUT SCH ×2 (03:19→14:54)
[2020-07-05 03:42] LABS: ABG Base Excess -8.3 MMOL/L (-2.5-2.5); ABG HCO3 17.6 MMOL/L (20-26); ABG Oxygen Saturation 91.6 % (95-100); ABG PCO2 34.1 MM HG (35-48); ABG PO2 65.6 MM HG (80-95); ABG TCO2 16.1 MMOL/L (23-27); Allen Test Positive
[2020-07-05 06:06] LABS: Basophils % 0.2 % (0.0-0.8); Eosinophils # 0.2 10*3/uL (0.0-0.87); Eosinophils % 3.3 % (0.00-10.9); Hemoglobin 8.6 GM/DL (12.0-16.0); Immature Granulocytes Absolute 0.05 #; Lymphocytes # 1.5 10*3/uL (1.4-4.0); Lymphocytes % 30.1 % (21.3-54.2); Mean Corpuscular HGB Conc 33.1 GM/DL (32-36); Mean Corpuscular Volume 90.3 FL (87-102); Mean Platelet Volume 9.6 FL (9.6-12.0); Monocytes % 12.3 % (1.7-12.7); Neutrophils % 53.1 % (38.7-73.9); Red Blood Count 2.88 MC/CUMM (3.8-5.5); Red Cell Distribution Width 14.1 % (9.3-17.3); White Blood Count 4.9 T/CUMM (4-12)
[2020-07-05 06:08] LABS: Platelet Count 84 T/CUMM (130-400)
[2020-07-05 06:19] LABS: Uric Acid 10.9 MG/DL (2.6-6.0)
[2020-07-05 06:20] LABS: Calcium 7.7 MG/DL (8.5-10.1); Osmolality,Calculated 297.5 MOS/KG (273-304); Potassium 5.3 MMOL/L (3.5-5.1)
[2020-07-05 06:32] LABS: Total Protein 6.3 G/DL (6.4-8.3)
[2020-07-05 07:33] LABS: Protein/Creatinine Ratio,Urine 3.3 RATIO
[2020-07-05] MEDS ORDERED: SODIUM POLYSTYRENE SULFATE 15 GM/60 ML BOTTLE PO STA (07:51)
[2020-07-05] MEDS: INSULIN REGULAR 100 UNIT/ML SUBCUT SCH ×4 (08:41→22:07)
[2020-07-05] MEDS: OMEGA 3 ACID ETHYL ESTERS 1 GM CAPSULE PO SCH (09:19)
[2020-07-05] MEDS: FERROUS SULFATE 325 MG TABLET PO SCH (09:19)
[2020-07-05] MEDS: FUROSEMIDE 40 MG/4 ML VIAL IV SCH ×2 (09:19→16:26)
[2020-07-05] MEDS: carvediloL 6.25 MG TABLET PO SCH ×2 (09:19→21:15)
[2020-07-05 09:48] LABS: Immunoglobulin A (Chem) 253 MG/DL (70-400); Immunoglobulin G (Chem) 1930 MG/DL (700-1600); Immunoglobulin M (Chem) 96 MG/DL (40-230); Total Protein (Chem) 6.3 G/DL (6.4-8.3)
[2020-07-05 11:32] LABS: Albumin (SPE) 2.8 G/DL (3.2-5.3); Alpha 1 (SPE) 0.2 G/DL (0.1-0.4); Alpha 1 (SPE) Rel % 3.8 %; Alpha 2 (SPE) 0.7 G/DL (0.4-1.0); Alpha 2 (SPE) Rel % 11.9 %; Beta (SPE) 0.6 G/DL (0.5-1.1); Beta (SPE) Rel % 8.8 %; Gamma (SPE) Rel % 31.5 %
[2020-07-05] MEDS: GABAPENTIN 600 MG TABLET PO SCH (21:15)
[2020-07-05] MEDS: SIMVASTATIN 10 MG TABLET PO SCH (21:15)
[2020-07-05] MEDS: SODIUM BICARBONATE 650 MG TABLET PO SCH (21:15)
[2020-07-05] MEDS: MORPHINE 4 MG/1 ML VIAL IV PRN (21:16)
[2020-07-06] MEDS: ALBUTEROL 0.63 MG/3 ML NEB RESP TX SCH ×2 (01:20→07:51)
[2020-07-06] MEDS: HEPARIN 5,000 UNIT/1 ML VIAL SUBCUT SCH (03:07)
[2020-07-06 06:12] LABS: Basophils % 0.2 % (0.0-0.8); Eosinophils # 0.2 10*3/uL (0.0-0.87); Eosinophils % 3.3 % (0.00-10.9); Hematocrit 26.7 VOL% (35.7-47.0); Hemoglobin 8.9 GM/DL (12.0-16.0); Immature Granulocytes % 0.4 %; Immature Granulocytes Absolute 0.02 #; Lymphocytes # 1.2 10*3/uL (1.4-4.0); Lymphocytes % 25.4 % (21.3-54.2); Mean Corpuscular HGB Conc 33.3 GM/DL (32-36); Mean Corpuscular Volume 90.5 FL (87-102); Neutrophils % 56.7 % (38.7-73.9); Platelet Count 78 T/CUMM (130-400); Red Blood Count 2.95 MC/CUMM (3.8-5.5); Red Cell Distribution Width 13.8 % (9.3-17.3); White Blood Count 4.8 T/CUMM (4-12)
[2020-07-06 06:37] LABS: Osmolality,Calculated 296.7 MOS/KG (273-304); Potassium 5.1 MMOL/L (3.5-5.1)
[2020-07-06 07:06] LABS: Anisocytosis 1+; Burr Cells Few; Platelet Estimate Decreased
[2020-07-06] MEDS ORDERED: SEVELAMER CARBONATE 800 MG TABLET PO SCH (08:00)
[2020-07-06] MEDS: FUROSEMIDE 40 MG/4 ML VIAL IV SCH (08:11)
[2020-07-06] MEDS: INSULIN REGULAR 100 UNIT/ML SUBCUT SCH ×2 (08:24→12:15)
[2020-07-06] MEDS ORDERED: LEVOFLOXACIN INJ 250 MG in PREMIX 1 EACH IV SCH (09:00)
[2020-07-06] MEDS: OMEGA 3 ACID ETHYL ESTERS 1 GM CAPSULE PO SCH (09:28)
[2020-07-06] MEDS: carvediloL 6.25 MG TABLET PO SCH (09:28)
[2020-07-06] MEDS: FERROUS SULFATE 325 MG TABLET PO SCH (09:28)
[2020-07-06] MEDS: SODIUM BICARBONATE 650 MG TABLET PO SCH (09:29)
[2020-07-06 09:43] LABS: Total Protein 24 Hr Ur Result 4864 MG/24HR (0-149.1); Total Volume,Urine 800 ML (400-2000)
[2020-07-06 11:08] VITALS: BP 167/79
[2020-07-07 06:11] LABS: 24 Hr Protein (Bench) 4864 MG/24HR (0-149.1)
[2020-07-07 09:39] LABS: Albumin (UPE) Rel % 80.8 %; Alpha 1 (UPE) Rel % 1.8 %; Alpha 2 (UPE) Rel % 1.8 %; Beta (UPE) Rel % 4.5 %; Gamma (UPE) Rel % 11.1 %
[2020-07-07 09:47] LABS: Albumin (UPE) 3930.1 MG/24H; Alpha 1 (UPE) 87.6 MG/24H; Alpha 2 (UPE) 87.6 MG/24H; Beta (UPE) 218.9 MG/24H; Gamma (UPE) 539.9 MG/24H
[2020-07-07 10:10] LABS: Immuno Free Light Chain Kappa 15.32 MG/DL (0.33-1.94); Immuno Free Light Chain Lambda 13.07 MG/DL (0.57-2.63); Immuno Free Light Chain Ratio 1.17 MG/DL (0.26-1.65)
[2020-07-10] MEDS ORDERED: ERGOCALCIFEROL 50,000 UNIT CAPSULE PO SCH (09:00)
== END 2020-07-06 12:40 | disposition home or self-care (01) | DRG 194 ==
LOC: N.ED 19:40 → N.EDINP 07-04 00:11 → N.3E 07-04 01:28
PROVIDERS: ADMIT Internal Medicine; ATTEND Internal Medicine

== ENCOUNTER 2020-07-20 18:49 | Inpatient (IN) ==
[2020-07-20] MEDS ORDERED: BISACODYL 5 MG TABLET PO PRN (21:41)
[2020-07-20] MEDS ORDERED: DEXTROSE 50% 25 GM/50 ML VIAL IV PRN (21:41)
[2020-07-20] MEDS ORDERED: DOCUSATE SODIUM 100 MG CAPSULE PO PRN (21:41)
[2020-07-20] MEDS ORDERED: ACETAMINOPHEN 325 MG TABLET PO PRN (21:41)
[2020-07-20] MEDS ORDERED: GLUCAGON 1 MG VIAL IM PRN (21:41)
[2020-07-20] MEDS ORDERED: cefTRIAXone 1,000 MG VIAL IM ONE (21:47)
[2020-07-20] MEDS ORDERED: AZITHROMYCIN INJ 500 MG in SODIUM CHLORIDE 0.9% 250 ML IV ONE (21:48)
[2020-07-20] MEDS ORDERED: AZITHROMYCIN INJ 500 MG in SODIUM CHLORIDE 0.9% 250 ML IV SCH (22:00)
[2020-07-20] MEDS ORDERED: cefTRIAXone 1,000 MG VIAL IM SCH (22:00)
[2020-07-20] MEDS: INSULIN GLARGINE 100 UNIT/ML SUBCUT SCH (22:50)
[2020-07-20] MEDS: carvediloL 6.25 MG TABLET PO SCH (22:51)
[2020-07-20] MEDS: GABAPENTIN 600 MG TABLET PO SCH (23:43)
[2020-07-21 05:35] LABS: Calcium 7.4 MG/DL (8.5-10.1); Osmolality,Calculated 304.4 MOS/KG (273-304)
[2020-07-21] MEDS ORDERED: FUROSEMIDE 40 MG/4 ML VIAL IV SCH (09:00)
[2020-07-21] MEDS: SEVELAMER CARBONATE 800 MG TABLET PO SCH ×3 (09:22→16:21)
[2020-07-21] MEDS: OMEGA 3 ACID ETHYL ESTERS 1 GM CAPSULE PO SCH (09:23)
[2020-07-21] MEDS: FERROUS SULFATE 325 MG TABLET PO SCH (09:23)
[2020-07-21] MEDS: carvediloL 6.25 MG TABLET PO SCH ×2 (09:23→16:21)
[2020-07-21] MEDS: SODIUM BICARBONATE 650 MG TABLET PO SCH ×3 (09:23→20:17)
[2020-07-21] MEDS: hydrALAZINE 25 MG TABLET PO SCH ×3 (09:23→20:17)
[2020-07-21] MEDS: medroxyPROGESTERone 5 MG TABLET PO SCH (09:24)
[2020-07-21] MEDS: INSULIN LISPRO 100 UNIT/ML SUBCUT SCH ×3 (10:01→16:22)
[2020-07-21] MEDS: AZITHROMYCIN 250 MG TABLET PO SCH (12:16)
[2020-07-21] MEDS: HEPARIN 5,000 UNIT/1 ML VIAL SUBCUT SCH ×2 (12:16→20:17)
[2020-07-21 12:25] LABS: Hepatitis B Surface Ag Quant < 0.10 Index; Hepatitis B Surface Ag Result Negative (Negative)
[2020-07-21] MEDS: FUROSEMIDE 100 MG/10 ML VIAL IV SCH (13:36)
[2020-07-21 15:52] LABS: Basophils % 0.3 % (0.0-0.8); Eosinophils # 0.2 10*3/uL (0.0-0.87); Eosinophils % 4.4 % (0.00-10.9); Hemoglobin 6.9 GM/DL (12.0-16.0); Immature Granulocytes % 0.5 %; Immature Granulocytes Absolute 0.02 #; Lymphocytes # 1.2 10*3/uL (1.4-4.0); Lymphocytes % 31.8 % (21.3-54.2); Mean Corpuscular HGB Conc 32.9 GM/DL (32-36); Mean Corpuscular Volume 90.1 FL (87-102); Mean Platelet Volume 9.6 FL (9.6-12.0); Monocytes % 10.9 % (1.7-12.7); Neutrophils % 52.1 % (38.7-73.9); Platelet Count 69 T/CUMM (130-400); Red Blood Count 2.33 MC/CUMM (3.8-5.5); Red Cell Distribution Width 15.5 % (9.3-17.3); White Blood Count 3.9 T/CUMM (4-12)
[2020-07-21] MEDS: ONDANSETRON 4 MG/2 ML VIAL IV PRN (16:22)
[2020-07-21] MEDS: GABAPENTIN 600 MG TABLET PO SCH (20:17)
[2020-07-21] MEDS: SIMVASTATIN 10 MG TABLET PO SCH (20:17)
[2020-07-21] MEDS: INSULIN GLARGINE 100 UNIT/ML SUBCUT SCH (20:18)
[2020-07-21] MEDS ORDERED: AZITHROMYCIN INJ 500 MG in SODIUM CHLORIDE 0.9% 250 ML IV ONE (21:48)
[2020-07-21] MEDS: cefTRIAXone 1,000 MG VIAL IV SCH (22:18)
[2020-07-22 04:23] LABS: Basophils % 0.2 % (0.0-0.8); Eosinophils # 0.2 10*3/uL (0.0-0.87); Eosinophils % 4.2 % (0.00-10.9); Hematocrit 20.3 VOL% (35.7-47.0); Immature Granulocytes % 0.2 %; Immature Granulocytes Absolute 0.01 #; Lymphocytes # 1.5 10*3/uL (1.4-4.0); Lymphocytes % 34.8 % (21.3-54.2); Mean Corpuscular HGB Conc 32.5 GM/DL (32-36); Mean Corpuscular Volume 91.9 FL (87-102); Mean Platelet Volume 10.1 FL (9.6-12.0); Monocytes % 11.4 % (1.7-12.7); Neutrophils % 49.2 % (38.7-73.9); Red Blood Count 2.21 MC/CUMM (3.8-5.5); Red Cell Distribution Width 15.5 % (9.3-17.3); White Blood Count 4.3 T/CUMM (4-12)
[2020-07-22 04:27] LABS: Hemoglobin 6.6 GM/DL (12.0-16.0); Platelet Count 79 T/CUMM (130-400)
[2020-07-22 04:41] LABS: Calcium 7.5 MG/DL (8.5-10.1); Osmolality,Calculated 303.4 MOS/KG (273-304)
[2020-07-22] MEDS: HEPARIN 5,000 UNIT/1 ML VIAL SUBCUT SCH ×3 (05:00→21:46)
[2020-07-22 05:01] LABS: Platelet Estimate Decreased
[2020-07-22 05:02] LABS: Hypochromasia 2+
[2020-07-22] MEDS: INSULIN LISPRO 100 UNIT/ML SUBCUT SCH ×3 (08:58→17:01)
[2020-07-22] MEDS: hydrALAZINE 25 MG TABLET PO SCH ×3 (10:46→21:45)
[2020-07-22] MEDS: carvediloL 6.25 MG TABLET PO SCH ×2 (10:46→17:02)
[2020-07-22] MEDS: FERROUS SULFATE 325 MG TABLET PO SCH (10:46)
[2020-07-22] MEDS: SEVELAMER CARBONATE 800 MG TABLET PO SCH ×3 (10:46→17:01)
[2020-07-22] MEDS: medroxyPROGESTERone 5 MG TABLET PO SCH (10:47)
[2020-07-22] MEDS: SODIUM BICARBONATE 650 MG TABLET PO SCH ×3 (10:47→21:45)
[2020-07-22] MEDS: OMEGA 3 ACID ETHYL ESTERS 1 GM CAPSULE PO SCH (10:47)
[2020-07-22] MEDS: AZITHROMYCIN 250 MG TABLET PO SCH (10:48)
[2020-07-22] MEDS ORDERED: TISSUE ADHESIVE 1 EACH APPLICATOR TOP ONE (13:10)
[2020-07-22] MEDS ORDERED: BUPIVACAINE MPF 0.25% 30 ML VIAL ONE (13:10)
[2020-07-22] MEDS ORDERED: LIDOCAINE 1%/EPI INJ 20 ML VIAL ONE (13:11)
[2020-07-22] MEDS: FUROSEMIDE 100 MG/10 ML VIAL IV SCH (13:35)
[2020-07-22] MEDS ORDERED: SODIUM CHLORIDE 0.9% 1,000 ML IV PRN (14:57)
[2020-07-22] MEDS ORDERED: propofoL 200 MG/20 ML VIAL IV ONE (16:41)
[2020-07-22] MEDS ORDERED: MIDAZOLAM 2 MG/2 ML VIAL ONE (16:41)
[2020-07-22] MEDS ORDERED: ONDANSETRON 4 MG/2 ML VIAL ONE (16:41)
[2020-07-22] MEDS ORDERED: SODIUM CHLORIDE 0.9% 100 ML IV ONE (16:41)
[2020-07-22] MEDS ORDERED: fentaNYL 100 MCG/2 ML VIAL ONE (16:41)
[2020-07-22] MEDS ORDERED: ceFAZolin 1,000 MG VIAL ONE (17:14)
[2020-07-22] MEDS ORDERED: MEPERIDINE 25 MG/1 ML VIAL IV ONE (17:59)
[2020-07-22] MEDS: SIMVASTATIN 10 MG TABLET PO SCH (21:45)
[2020-07-22] MEDS: GABAPENTIN 600 MG TABLET PO SCH (21:45)
[2020-07-22] MEDS: INSULIN GLARGINE 100 UNIT/ML SUBCUT SCH (21:46)
[2020-07-22] MEDS: cefTRIAXone 1,000 MG VIAL IV SCH (21:59)
[2020-07-22] MEDS ORDERED: amLODIPine 5 MG TABLET PO ONE (22:51)
[2020-07-23] MEDS: HEPARIN 5,000 UNIT/1 ML VIAL SUBCUT SCH ×3 (04:47→21:46)
[2020-07-23 05:49] LABS: Basophils % 0.7 % (0.0-0.8); Eosinophils # 0.2 10*3/uL (0.0-0.87); Hematocrit 24.2 VOL% (35.7-47.0); Hemoglobin 7.9 GM/DL (12.0-16.0); Immature Granulocytes % 0.4 %; Immature Granulocytes Absolute 0.02 #; Lymphocytes # 1.2 10*3/uL (1.4-4.0); Lymphocytes % 26.8 % (21.3-54.2); Mean Corpuscular HGB Conc 32.6 GM/DL (32-36); Mean Corpuscular Volume 88.6 FL (87-102); Mean Platelet Volume 10.7 FL (9.6-12.0); Monocytes % 11.1 % (1.7-12.7); Red Cell Distribution Width 17.7 % (9.3-17.3); White Blood Count 4.5 T/CUMM (4-12)
[2020-07-23 05:57] LABS: Platelet Count 76 T/CUMM (130-400); Red Blood Count 2.73 MC/CUMM (3.8-5.5)
[2020-07-23 06:15] LABS: Hypochromasia 1+; Microcytosis 1+; Ovalocytes Slight; Platelet Estimate Decreased
[2020-07-23 06:35] LABS: Calcium 7.6 MG/DL (8.5-10.1); Osmolality,Calculated 297.4 MOS/KG (273-304)
[2020-07-23] MEDS: hydrALAZINE 25 MG TABLET PO SCH ×3 (09:09→21:46)
[2020-07-23] MEDS: AZITHROMYCIN 250 MG TABLET PO SCH (09:09)
[2020-07-23] MEDS: OMEGA 3 ACID ETHYL ESTERS 1 GM CAPSULE PO SCH (09:09)
[2020-07-23] MEDS: SEVELAMER CARBONATE 800 MG TABLET PO SCH ×3 (09:09→17:07)
[2020-07-23] MEDS: medroxyPROGESTERone 5 MG TABLET PO SCH (09:09)
[2020-07-23] MEDS: carvediloL 6.25 MG TABLET PO SCH ×2 (09:09→17:07)
[2020-07-23] MEDS: SODIUM BICARBONATE 650 MG TABLET PO SCH ×3 (09:09→21:56)
[2020-07-23] MEDS: FERROUS SULFATE 325 MG TABLET PO SCH (09:10)
[2020-07-23] MEDS: INSULIN LISPRO 100 UNIT/ML SUBCUT SCH ×3 (09:10→17:01)
[2020-07-23] MEDS: ONDANSETRON 4 MG/2 ML VIAL IV PRN ×2 (17:07→22:46)
[2020-07-23] MEDS: SIMVASTATIN 10 MG TABLET PO SCH (21:46)
[2020-07-23] MEDS: INSULIN GLARGINE 100 UNIT/ML SUBCUT SCH (21:46)
[2020-07-23] MEDS: GABAPENTIN 600 MG TABLET PO SCH (21:46)
[2020-07-23] MEDS: cefTRIAXone 1,000 MG VIAL IV SCH (21:47)
[2020-07-24] MEDS: HEPARIN 5,000 UNIT/1 ML VIAL SUBCUT SCH ×3 (05:52→21:44)
[2020-07-24 05:54] LABS: Basophils % 0.2 % (0.0-0.8); Eosinophils # 0.1 10*3/uL (0.0-0.87); Eosinophils % 2.8 % (0.00-10.9); Hematocrit 22.9 VOL% (35.7-47.0); Hemoglobin 7.5 GM/DL (12.0-16.0); Immature Granulocytes % 0.7 %; Immature Granulocytes Absolute 0.03 #; Lymphocytes # 1.4 10*3/uL (1.4-4.0); Lymphocytes % 29.9 % (21.3-54.2); Mean Corpuscular HGB Conc 32.8 GM/DL (32-36); Mean Corpuscular Volume 89.1 FL (87-102); Mean Platelet Volume 9.6 FL (9.6-12.0); Monocytes % 10.9 % (1.7-12.7); Neutrophils % 55.5 % (38.7-73.9); Platelet Count 88 T/CUMM (130-400); Red Blood Count 2.57 MC/CUMM (3.8-5.5); Red Cell Distribution Width 17.3 % (9.3-17.3); White Blood Count 4.6 T/CUMM (4-12)
[2020-07-24 05:59] LABS: Calcium 7.5 MG/DL (8.5-10.1); Osmolality,Calculated 296.4 MOS/KG (273-304)
[2020-07-24 06:17] LABS: Hypochromasia 2+; Microcytosis 1+; Ovalocytes Slight; Platelet Estimate Decreased
[2020-07-24] MEDS: medroxyPROGESTERone 5 MG TABLET PO SCH (08:54)
[2020-07-24] MEDS: CALCIUM ACETATE 667 MG CAPSULE PO SCH ×3 (08:54→16:41)
[2020-07-24] MEDS: AZITHROMYCIN 250 MG TABLET PO SCH (08:55)
[2020-07-24] MEDS: OMEGA 3 ACID ETHYL ESTERS 1 GM CAPSULE PO SCH (08:55)
[2020-07-24] MEDS: carvediloL 6.25 MG TABLET PO SCH ×2 (08:55→16:42)
[2020-07-24] MEDS: SODIUM BICARBONATE 650 MG TABLET PO SCH ×3 (08:56→21:43)
[2020-07-24] MEDS: INSULIN LISPRO 100 UNIT/ML SUBCUT SCH ×3 (08:56→16:43)
[2020-07-24] MEDS: hydrALAZINE 25 MG TABLET PO SCH ×3 (08:56→21:43)
[2020-07-24] MEDS: FERROUS SULFATE 325 MG TABLET PO SCH (08:59)
[2020-07-24] MEDS ORDERED: ERGOCALCIFEROL 50,000 UNIT CAPSULE PO SCH (09:00)
[2020-07-24] MEDS ORDERED: HEPARIN 10,000 UNIT/10 ML VIAL IV PRN (11:25)
[2020-07-24] MEDS: INSULIN GLARGINE 100 UNIT/ML SUBCUT SCH (21:43)
[2020-07-24] MEDS: SIMVASTATIN 10 MG TABLET PO SCH (21:43)
[2020-07-24] MEDS: GABAPENTIN 600 MG TABLET PO SCH (21:43)
[2020-07-24] MEDS: cefTRIAXone 1,000 MG VIAL IV SCH (21:44)
[2020-07-25 05:50] LABS: Basophils % 0.4 % (0.0-0.8); Eosinophils # 0.2 10*3/uL (0.0-0.87); Eosinophils % 3.6 % (0.00-10.9); Hematocrit 22.9 VOL% (35.7-47.0); Hemoglobin 7.4 GM/DL (12.0-16.0); Immature Granulocytes % 0.4 %; Immature Granulocytes Absolute 0.02 #; Lymphocytes # 1.6 10*3/uL (1.4-4.0); Lymphocytes % 34.3 % (21.3-54.2); Mean Corpuscular HGB Conc 32.3 GM/DL (32-36); Mean Corpuscular Volume 89.1 FL (87-102); Mean Platelet Volume 10.1 FL (9.6-12.0); Monocytes % 14.3 % (1.7-12.7); Platelet Count 104 T/CUMM (130-400); Red Blood Count 2.57 MC/CUMM (3.8-5.5); Red Cell Distribution Width 16.9 % (9.3-17.3); White Blood Count 4.8 T/CUMM (4-12)
[2020-07-25 06:00] LABS: Calcium 8.1 MG/DL (8.5-10.1); Osmolality,Calculated 286.4 MOS/KG (273-304)
[2020-07-25 06:23] LABS: Hypochromasia 2+; Microcytosis 1+; Platelet Estimate Decreased
[2020-07-25] MEDS: HEPARIN 5,000 UNIT/1 ML VIAL SUBCUT SCH ×2 (06:31→13:00)
[2020-07-25] MEDS: CALCIUM ACETATE 667 MG CAPSULE PO SCH ×2 (09:28→12:00)
[2020-07-25] MEDS: SODIUM BICARBONATE 650 MG TABLET PO SCH (09:28)
[2020-07-25] MEDS: carvediloL 6.25 MG TABLET PO SCH (09:29)
[2020-07-25] MEDS: hydrALAZINE 25 MG TABLET PO SCH (09:29)
[2020-07-25] MEDS: OMEGA 3 ACID ETHYL ESTERS 1 GM CAPSULE PO SCH (09:29)
[2020-07-25] MEDS: FERROUS SULFATE 325 MG TABLET PO SCH (09:29)
[2020-07-25] MEDS: INSULIN LISPRO 100 UNIT/ML SUBCUT SCH ×2 (09:31→12:00)
[2020-07-25] MEDS: medroxyPROGESTERone 5 MG TABLET PO SCH (09:33)
[2020-07-25 16:26] VITALS: BP 159/69
== END 2020-07-25 17:25 | disposition home or self-care (01) | DRG 194 ==
LOC: INTOOBSV 19:00 → N.5E 19:00 → SUATTDRO 07-21 13:57
PROVIDERS: ADMIT Phlebology; ATTEND Family Medicine